=== PATIENT | male | born 1960 | race Caucasian/White ===

== ENCOUNTER 2019-04-26 06:00 | Outpatient (RCR) | payer OTHER, SELFPAY | END 2019-05-26 00:01 | LOC: TPT 06:00 | PROVIDERS: Family Provider Nurse Practitioner Family; Visit Provider Orthopaedic Surgery | DX: M25.611 Stiffness of right shoulder, not elsewhere classified (principal); M25.511 Pain in right shoulder | CPT/HCPCS: 97110 ×10; 97140 ×9; 97164; 97530 ×2; G0283 ==

== ENCOUNTER 2019-05-27 09:14 | Outpatient (RCR) | payer BC, SELFPAY | END 2019-06-26 23:59 | disposition home or self-care (01) | LOC: TPT 09:14 | PROVIDERS: Family Provider Nurse Practitioner Family; PCP Nurse Practitioner Family; Visit Provider Nurse Practitioner Family | DX: Z47.89 Encounter for other orthopedic aftercare (principal) | CPT/HCPCS: 97110; 97140 ==

== ENCOUNTER 2019-05-29 11:47 | Outpatient (CLI) | payer BC, SELFPAY ==
--- NOTE | 2019-05-29 12:19 | ECG_ITS ---
NAME OF STUDY: TREADMILL STRESS TEST INDICATION: Chest Pain Baseline blood pressure of 143/92 mmHg and heart rate of 76 bpm. EKG showed sinus tachycardia, normal axis with normal ST-Ts. The patient exercised for 6 minutes 17 seconds on a standard Justen protocol. Patient attained a maximum heart rate of 141 beats per minute(87 % of the maximum predicted heart rate) with a blood pressure at the peak exercise of [210/103 mm Hg and oxygen saturation of 93%. The EKG at the peak exercise revealed sinus tachycardia with 2 to [address] depression and T wave inversion in infero-lateral leads. Patient did not have any chest pain or any significant arrhythmia with the exercise During the recovery phase, there were no new changes. ST depression and T wave inversion normalized 1 minute 12 seconds into recovery. Blood pressure at the end of the recovery phase was 171/91 mm Hg with a heart rate of 101 beats per minute and oxygen saturation 93%. CONCLUSION: 1. Positive EKG response to treadmill exercise. There was 2 to [address] depression and T wave inversion in infero-lateral leads at peak exercise. 2. No exercise-induced chest pain or cardiac arrhythmia 3. Fair exercise tolerance, attained a maximum of 10.2 METs. Maximum VO2 of 35.7 mL/kg/min. 4. Baseline hypertension with hypertensive response to exercise. Electronically Signed On 05-31-2019 13:41:58 PULP MILL SUPERVISOR by Ashanti Carrizales M.D. [email or web address]
[2019-05-29 12:29] VITALS: BMI 32.8
[2019-05-29 12:51] VITALS: BP 171/91; PULSE 71
== END 2019-05-29 11:48 | disposition home or self-care (01) ==
LOC: CDL 11:48
PROVIDERS: Family Provider Nurse Practitioner Family; PCP Nurse Practitioner Family; Visit Provider Nurse Practitioner Family
DX: R07.9 Chest pain, unspecified (principal)
CPT/HCPCS: 93017

== ENCOUNTER 2019-07-21 05:48 | Day surgery (SDC) | payer BC, SELFPAY ==
[2019-07-14 08:28] LABS: Basophils # 0.1 10^3/uL (0.0-0.1); Eosinophils # 0.2 10^3/uL (0.0-0.8); Eosinophils % 3.4 %; Hematocrit 44.6 % (42.0-52.0); Hemoglobin 14.6 g/dL (11.7-16.6); Lymphocytes # 1.6 10^3/uL (0.8-4.8); Lymphocytes % 26.3 %; Mean Corpuscular HGB Conc 32.7 g/dL (30.0-36.0); Mean Corpuscular Hemoglobin 29.4 pg (28.0-34.0); Mean Corpuscular Volume 89.9 fL (80-94); Mean Platelet Volume 9.4 fL (7.4-10.4); Monocytes # 0.5 10^3/uL (0.2-0.9); Neutrophils # 3.8 10^3/uL (1.8-7.7); Neutrophils % 61.1 %; Nucleated Red Blood Cells % 0 %; Platelet Count 259 10^3/cmm (130-400); Red Blood Count 4.96 10^6/uL (4.1-5.3); Red Cell Distribution Width 12.6 % (12.1-15.1); White Blood Count 6.1 10^3/uL (4.0-10.0)
[2019-07-14 08:42] LABS: INR 0.93 (0.8-1.2)
[2019-07-14 08:46] LABS: Anion Gap 15.1 (5-19); Blood Urea Nitrogen 11 mg/dL (6-20); Calcium 9.9 mg/dL (8.5-10.5); Carbon Dioxide 27 mmol/L (22-29); Chloride 103 mmol/L (98-107); Glomerular Filtration Rate 137.9 mL/min (90-130); Glucose 118 mg/dL (65-115); Osmolality Calculated 289 mOsm/kg (285-295); Potassium 4.1 mmol/L (3.5-5.1); Sodium 141 mmol/L (136-145)
[2019-07-20 11:14] VITALS: BMI 32.0
[2019-07-21] VITALS (15 sets, daily range): BP systolic 117–218; BP diastolic 61–116; PULSE 60–82; RESP 12–18; TEMP 36.6–36.8; O2SAT 95–99
[2019-07-21] MEDS: diphenhydrAMINE 50 mg Capsule PO (06:39)
--- NOTE | 2019-07-21 07:00 | XACV_ITS ---
Ht: 183 cm Wt: 107 kg BSA: 2.36 m2 Gender: Male : 1960 Any Known Allergies: No known allergies Exam Priority: Routine Procedure(s): Procedure Description: Diagnostic procedure Procedure Description: Left Heart Catheterization Procedure Description: Left ventriculography Procedure Description: Coronary Angiography Diagnostic Cath Status: Elective Diagnostic Findings Patient with somewhat atypical pain but a positive treadmill stress test. Coronary angiography recommended. Coronary angiography reveals right coronary artery dominance. The left main coronary artery is normal. Circumflex is a relatively small vessel and contains a 50% stenosis proximally but otherwise mild diffuse luminal irregularities. There is a small ramus intermedius artery which contains a 50% stenosis proximally but otherwise no significant stenoses. The LAD is a moderate size vessel and gives off 2 diagonal branches. There is mild diffuse luminal irregularities of the LAD and diagonals. The proximal vessels are heavily calcified. The right coronary artery is a large dominant vessel and ends distally as several small posterior left ventricular branches and a posterior descending artery. There is mild diffuse luminal irregularity but no significant stenoses. Conclusions Mild nonobstructive coronary artery disease. Normal left ventricular function. Interventional RX Recommendation: medical therapy and/or counseling Diagnostic RX Recommendation: medical therapy and/or counseling Anticoagulation: Heparin Ventriculography Ejection Fraction: 65.0 % Pressures Phase:Rest AO : 108 mmHg / 78 mmHg ( 92 mmHg ) @ 1:29:00 AM 132 mmHg / 67 mmHg ( 92 mmHg ) @ 1:43:00 AM 132 mmHg / 68 mmHg ( 93 mmHg ) @ 1:43:00 AM 122 mmHg / 67 mmHg ( 88 mmHg ) @ 1:43:00 AM LV : 149 mmHg / -10 mmHg / @ 1:42:00 AM 162 mmHg / -18 mmHg / @ 1:43:00 AM 156 mmHg / -12 mmHg / @ 1:43:00 AM Valves Phase:DefaultPhase AV : 24.0 mmHg @ 7:52:05 AM 24.0 mmHg @ 7:52:05 AM AV Mean Gradient: 17.0 mmHg @ 7:52:05 AM Clinical Evaluation EBL: 5mL-10mL Procedural Details Procedure Consent Obtained. Pre-Procedure Time Out. Identified patient by full name and date of as verbalized by the patient/guarantor. Does the consent match the physician's order: Yes. Accurate & Complete Informed Consent: Yes. Inpatient/Outpatient History & Physical on Chart: Yes. If H&P is completed, is and addenduem needed: No; If yes, is the addendum complete: N/A. Visualize and Verify Site with Patient/Guarantor: N/A. Relevant Radiology Images available: N/A. Pre-op teaching completed and patient verbalized understanding. The risks, benefits, and alternatives of sedation and/or procedure were discussed by physician. The patient agrees to continue. Procedure started. [facility] Clinical Fraility Score: 3: Managing Well. 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 Chest Pain Symptom Assessment: Non-anginal Chest Pain. Cardiovascular Instability: No. Correct patient, site and procedure confirmed by cath team. PERRLA. 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 Lungs clear x 5 lobes. IV Site on Arrival: 20 gauge in the left wrist. IV Fluids: 0.9% NaCl at KVO. 0 mL infused prior to general labor forklift operator. Pre Procedural Pulses: bilateral dorsalis pedis was 2+. Pre Procedural Pulses: bilateral posterior tibial was 2+. Pre Procedural Pulses: bilateral radial was 2+. Oxygen started at 2liters/min via nasal canula. bilateral groins was prepped with chloroprep then draped in the usual sterile fashion. right radial was prepped with chloroprep then draped in the usual sterile fashion. Physician notified. Baseline sample Acquired. HR: 94 BPM. Equipment: 6F - Radial. Cardiac Cath Pack. ACIST Manifold Kit Model BT 2000. Heparinized Saline (2 units/mL), 1000 mL bag. Physician arrived. Physician scrubbed in. Immediate Pre-Procedure Time Out. Correct Patient: Yes; Correct Procedure: Yes; Correct Site: Yes; Correct Patient Position: Yes; Correct Supplies: Yes; Dried Flammable Prep: Yes; Blood Products Available: N/A;. Lidocaine 1% infiltrated to the right radial. Arterial access obtained. A TR 6FR Radial TIG 4.0 110cm was advanced over the wire and used for Left coronary angiography. Multiple views taken of left coronary artery. Catheter redirected to the RCA. Multiple views taken of right coronary artery. Catheter removed over the exchange wire. A CRD 6F 145 degree Pigtail 110cm Diagnostic Catheter was advanced over the wire and used for Ventriculography. Patient's family updated. Catheter removed over the exchange wire. A 6 slovak TIG catheter in over wire. Catheter removed over the exchange wire. A CRD 6F 145 degree Pigtail 110cm Diagnostic Catheter was advanced over the wire and used for Ventriculography. EDP Sample taken: LV 149/-10,15; HR: 79 BPM; SpO2: 94%. LV gram performed in FORRESTER @ 10 mL/second for a total of 30 mL. EDP Sample taken: LV 162/-19,11; HR: 85 BPM; SpO2: 94%. Pullback taken: LV 156/-13,11; AO 132/67(92); Mean: 17mmHg, Peak to Peak: 24mmHg, SEP: 21sec/min; HR: 86 BPM; SpO2: 93%. Catheter removed over the exchange wire. Physician scrubbed out. A TR Band was successful obtaining hemostatsis at the Right Radial artery insertion site. TR band placed. Hemostasis obtained. Post Procedure: Pulses reassessed and unchanged. PERRLA. 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 No VTE prophylaxis required. Medication's Wasted: Lidocaine 1% = 18 mL. Medication's Wasted: Nitro = 49.8 mg. Medication's Wasted: Heparin = 1000 units. Total IV fluids: 58.8 mL. Medication's Wasted: Other = versed mg. Medication's Wasted: Other = fentanyl 50 mcg. Post-op diagnosis: chest pain. Complications: none. Estimated blood loss: 5mL-10mL. Procedure completed. Patient transferred by wheelchair to CPRU. Vital chart was stopped. Site: Right Radial artery Sheath Size: 6 Fr Hemostasis Method: TR Band Hemostasis Success: Successful Procedure Medications Start: 7:14 AM Stop: 7:14 AM Medication: Versed Amount: 1 mg Route: I.V. Start: 7:14 AM Stop: 7:14 AM Medication: Fentanyl Amount: 50 mcg Route: I.V. Start: 7:21 AM Stop: 7:21 AM Medication: Versed Amount: 1 mg Route: I.V. Start: 7:21 AM Stop: 7:21 AM Medication: Fentanyl Amount: 50 mcg Route: I.V. Start: 7:25 AM Stop: 7:25 AM Medication: Verapamil Amount: 5 mg Route: I.A. Start: 7:27 AM Stop: 7:27 AM Medication: Nitrogylcerin Amount: 200 mcg Route: I.A. Start: 7:29 AM Stop: 7:29 AM Medication: Heparin Amount: 5000 units Route: I.V. Start: 7:32 AM Stop: 7:32 AM Medication: Versed Amount: 1 mg Route: I.V. Start: 7:32 AM Stop: 7:32 AM Medication: Fentanyl Amount: 50 mcg Route: I.V. I, the attending physician, have reviewed and verified all procedure medications. Yes, all medications given per verbal order History/Risk Factors Hypertension: Yes Dyslipidemia: Yes Peripheral Arterial Disease (PAD): No Myocardial Infarction (SD): No Obesity: No Renal Disease: No Tobacco Use: Never Prior Interventions PCI: No CABG: No Valve Surgery: No Report Signatures Finalized by:Dr. Bertrand Hutchinson MD on 07/21/2019 8:03:28 AM
--- NOTE | 2019-07-21 08:00 | SUR.PHASEII ---
POST CATH NOTE Patient returned to CPRU 3 for recovery. Status post- cardiac cath via the right radial approach. No hematoma formation noted at this time. Verbal post cath instructions given to the patient- verbalized understanding. Will continue to monitor.
[2019-07-21] MEDS: sodium chloride 0.9% 1,000 ML 125 ML IV (08:34)
--- NOTE | 2019-07-21 10:00 | SUR.PHASEII ---
TR BAND TR band removed using protocol. No hematoma formation noted at this time.
--- NOTE | 2019-07-21 10:29 | SUR.PHASEII ---
DISCUSSION Dr Hutchinson in to discuss findings of the test with the patient. No new orders at this time.
== END 2019-07-21 11:44 | disposition home or self-care (01) ==
PROVIDERS: Visit Provider Internal Medicine Cardiovascular Disease
DX: I25.10 Atherosclerotic heart disease of native coronary artery without angina pectoris (principal); R94.39 Abnormal result of other cardiovascular function study; R07.89 Other chest pain; I10 Essential (primary) hypertension; E78.5 Hyperlipidemia, unspecified
CPT/HCPCS: 80048; 85025; 85610; 93452; C1769; C1887; C1894; J1644; J2001; J2250; J3010; J3490; J7030; Q0163; Q9967

== ENCOUNTER → 2019-07-28 10:55 | Outpatient (BNVA) | payer BC, SELFPAY | PROVIDERS: Visit Provider Nurse Practitioner Family | DX: I25.10 Atherosclerotic heart disease of native coronary artery without angina pectoris (principal) | CPT/HCPCS: 80048 ==

== ENCOUNTER → 2019-11-12 12:10 | Outpatient (BNVA) | payer BC, SELFPAY | PROVIDERS: Visit Provider Nurse Practitioner Family | DX: E78.5 Hyperlipidemia, unspecified (principal); I10 Essential (primary) hypertension; I25.10 Atherosclerotic heart disease of native coronary artery without angina pectoris | CPT/HCPCS: 80053; 80061; 85025 ==

== ENCOUNTER → 2020-02-11 17:01 | Outpatient (BNVA) | payer OTHER, SELFPAY | PROVIDERS: Visit Provider Internal Medicine | DX: B34.9 Viral infection, unspecified (principal); Z20.828 Contact with and (suspected) exposure to other viral communicable diseases | CPT/HCPCS: 87635 ==

== ENCOUNTER → 2020-06-20 09:02 | Outpatient (BNVA) | payer OTHER, SELFPAY | PROVIDERS: Visit Provider Nurse Practitioner Family | DX: R53.82 Chronic fatigue, unspecified (principal); I10 Essential (primary) hypertension; I25.10 Atherosclerotic heart disease of native coronary artery without angina pectoris | CPT/HCPCS: 80053; 80061; 82306; 82607; 84403; 84443; 85025 ==

== ENCOUNTER 2020-12-23 09:25 | Outpatient (CLI) | payer OTHER, SELFPAY ==
--- NOTE | 2020-12-23 09:38 | XR_ITS ---
WS: [id number] XR lumbar spine 2-3V* [id number] REASON FOR EXAM: JOINT PAIN FINDINGS: There is flattening of the L1 vertebral body and mild concave compression deformity of the remaining vertebral bodies. There is moderate narrowing of the L1-L2 and L5-S1 disc space. This is associated with large anterior osteophytes. The remaining disc spaces in the lumbar spine demonstrate mild narrowing, smaller anter ior osteophytes. Severe degenerative facet joint changes L3-S1. No spondylolisthesis or spondylolysis identified. XR/XR lumbar spine 2-3V* [id number] IMPRESSION: Multiple compression deformities in the lumbar spine of uncertain age, likely c hronic. Degenerative lumbar disc disease as above.
--- NOTE | 2020-12-23 09:39 | XR_ITS ---
WS: [id number] XR shoulder RT min 2V* [id number] REASON FOR EXAM: JOINT PAIN FINDINGS: Right shoulder is unchanged compared to previous examination of 11/06/2018. Narrowing of the right acromioclavicular joint with marginal spurring directed superiorly. There is n arrowing of the glenohumeral joint. There is spurring of the glenoid rim. There is degenerative scler otic and cystic change in the rotator cuff insertion point on the humerus. No focal bone lesion. No soft tissue abnormality. XR/XR shoulder RT min 2V* [id number] IMPRESSION: Stable findings of osteoarthritis and rotator cuff tendinosis.
== END 2020-12-23 09:26 | disposition home or self-care (01) ==
PROVIDERS: PCP Nurse Practitioner Family; Visit Provider Dermatology
DX: Z02.71 Encounter for disability determination (principal); M51.36 Other intervertebral disc degeneration, lumbar region
CPT/HCPCS: 72100; 73030

== ENCOUNTER → 2021-01-13 09:21 | Outpatient (BNVA) | payer OTHER, SELFPAY | PROVIDERS: PCP Nurse Practitioner Family; Visit Provider Nurse Practitioner Family | DX: E78.5 Hyperlipidemia, unspecified (principal); M25.512 Pain in left shoulder; G89.29 Other chronic pain; E55.9 Vitamin D deficiency, unspecified; I10 Essential (primary) hypertension; M65.322 Trigger finger, left index finger | CPT/HCPCS: 73030 ==

== ENCOUNTER → 2021-01-16 15:46 | Outpatient (BNVA) | payer OTHER, SELFPAY | PROVIDERS: PCP Nurse Practitioner Family; Referring Provider Nurse Practitioner Family; Visit Provider Specialist | DX: M79.642 Pain in left hand (principal) | CPT/HCPCS: 73130 ==

== ENCOUNTER → 2021-01-23 09:16 | Outpatient (BNVA) | payer OTHER, SELFPAY | PROVIDERS: PCP Nurse Practitioner Family; Visit Provider Specialist | DX: Z01.812 Encounter for preprocedural laboratory examination (principal); Z20.822 Contact with and (suspected) exposure to COVID-19; M65.322 Trigger finger, left index finger | CPT/HCPCS: 87635 ==

== ENCOUNTER 2021-01-27 07:48 | Day surgery (SDC) | payer OTHER, SELFPAY ==
[2021-01-26 15:45] VITALS: BMI 32.5
--- NOTE | 2021-01-27 08:16 | P.HPUD_ITS ---
Surgery/Procedure H&P Update DATE OF PROCEDURE: January 27, 2021 DATE H&P PERFORMED: 01/16/21 H&P UPDATE INFORMATION: I have reviewed H&P completed within last 30 days, I have examined patient prior to procedure, No changes to prior documentation and H&P is in [facility] EMR on date indicated PLANNED PROCEDURE: Operation Date: 01/27/21 09:10 Proposed Procedures p Trigger Finger Release left index(Left) - Radha Velasquez MD Related Problem List Diagnoses (1) Trigger finger, left index finger:
[2021-01-27] MEDS: sodium chloride 0.9% 1,000 ML 30 ML IV (08:30)
[2021-01-27] MEDS: acetaminophen 1,000 MG/100 ML PIGGYBACK 400 MG IV (08:55)
--- NOTE | 2021-01-27 08:55 | ANES.PREANE2 ---
Pre-Anesthetic Assessment Pre-Anesthetic Assessment: Height/Weight: Height 1.83 m Weight 108.862 kg Preop Diagnosis: Left index trigger finger Proposed Procedure: Operation Date: 01/27/21 09:10 Proposed Procedures p Trigger Finger Release left index(Left) - Radha Velasquez MD Familial anesthetic complications: None Was Beta Dominic taken within 24 hours: N/A Was Clonidine taken within 24 hours: N/A Last intake: Intake Last Liquid Date 01/26/21 Last Liquid Time 20:00 Last Solid Date 01/26/21 Last Solid Time 20:00 Social: Social History: Tobacco and No alcohol Exam: Pre-Anes Outpt Exam: alert, oriented x 3, clear to auscultation bilaterally and regular rate & rhythm Airway: Cervical ROM: WNL MP: 3 Dentition: Chipped CV/HEM: CV/HEM: CAD and HTN Comments: mod CAD on cath from 2019 - medical management Metabolic: Metabolic: Hyperlipidemia Anesthetic Plan: ASA status: 3 Anesthesia: MAC and Regional (specify below) (misael block) Risk of > 500 ml blood loss (7ml/kg in children): No PFSH Anesthesia PFSH: Medical History (Updated 01/18/21 @ 14:31 by Radha Velasquez MD) Anxiety Chest pain Coronary artery disease 07/21/2019: Non obstructive disease: 50% proximal stenosis of the circumflex, 50% proximal stenosis of the ramus intermedius. LVEF normal. HLD (hyperlipidemia) HTN (hypertension) Family History Father COPD (chronic obstructive pulmonary disease) Family/Other Cancer Brother Family history of premature coronary artery disease Hypertension Stroke Denies family history of Diabetes CAD (coronary artery disease) Clotting disorder Dementia Hyperlipidemia Psychiatric illness Chronic kidney disease (CKD) Suicide Anesthesia complication Bleeding disorder Lung disease Social History Smoking and tobacco status: never smoked Second hand smoke exposure: No Alcohol intake: current Alcohol intake frequency: holidays/special occasions only Lives independently: Yes Household members: spouse Marital status: Current occupational status: employed Current occupation: [employer] History of recent travel: No Current gender identity: Male Data Anesthesia Cardiac Studies: No Data to Display
[2021-01-27] MEDS: CELEcoxib 200 mg Capsule 400 MG PO (09:03)
[2021-01-27 10:08] VITALS: BP 106/77; PULSE 76; RESP 12; TEMP 36.5; O2SAT 97
[2021-01-27 10:10] VITALS: BP 110/69; PULSE 69; RESP 16; O2SAT 96
[2021-01-27 10:15] VITALS: BP 112/76; PULSE 73; RESP 16; O2SAT 93
--- NOTE | 2021-01-27 10:15 | PM.OP ---
Operative Report Date of procedure: January 27, 2021 Pre-op Diagnosis: Left index trigger finger Post-op diagnosis: same Post-op Findings: Very tight A1 pa Procedure Done: Release left index finger trigger finger Specimens removed/disposition: None Pathology: none sent Surgeon: Radha Velasquez Tipple Supervisor: None Anesthesia: MAC (With [place] block, ASA 3) Estimated blood loss (mL): 1 Tourniquet time (min): 34 Tourniquet time: At 250 mmHg IV fluids (mL): 600 Urine output (mL): 0 Urine output: No Russo Complications: None Findings: Significant thickening of the A1 pa with triggering Condition: stable Disposition: PACU (Then discharged to same-day surgery and subsequent to home) Brief History: This 60-year-old gentleman presented with complaints of index finger triggering. This caused him issues in his activities of daily living. After discussion, the patient wished to proceed with trigger finger release. Therefore, questions were answered, and consents were signed. The patient was then scheduled for surgery. Procedure: Patient was brought to the operating theater. He was placed on the operating room table. A [place] block was administered without difficulty. Patient tolerated it well. Ancef 2 g was administered prophylactically preoperatively. A tourniquet was placed high on the arm and was elevated for the Nicole block. This followed exsanguination of the arm. Tourniquet time was 34 minutes. Surgical pause was performed prior to commencement of the surgical procedure. At the time of the surgical pause we identified the site and side of surgery. We also identified the patient's identity and appropriate administration of IV antibiotics. Following the surgical pause, an incision was made along the distal palmar crease beneath the index finger. Dissection continued through the skin to the subcutaneous tissues using a scalpel. Blunt dissection was then utilized to spread soft tissues and allow access to the A1 pa and to avoid injury to the digital nerves. The A1 pa was identified. It was then incised longitudinally and sharply using a knife. This was accomplished without difficulty and atraumatically. Once the A1 pa was released, tendons were brought up out of the wound and evaluated. There were no gross masses on the tendons. Tendons were returned to normal position. We then irrigated the wound and subsequently closed it with 3-0 nylon with an interrupted mattress type suture. Following closure of the wound, the wound was injected with local anesthetic into the subcutaneous tissues. Sterile dressing was then placed consisting of Dermabond, OpSite, fluffed fluffs, sterile soft roll, and an Francisco wrap. The patient was returned to recovery in satisfactory condition. [] will be discharged home to follow-up with me in the office. There were no complications and no specimens. Associated Problem List Diagnoses (1) Trigger finger, left index finger:
[2021-01-27 10:20] VITALS: BP 118/70; PULSE 65; RESP 17; TEMP 36.6; O2SAT 95
[2021-01-27 10:25] VITALS: BP 120/82; PULSE 72; RESP 18; TEMP 36.4; O2SAT 97
[2021-01-27 10:48] VITALS: BP 121/76; PULSE 62; RESP 18; O2SAT 98
--- NOTE | 2021-01-27 15:58 | ANE.PACU2 ---
Inpatient post-anesthesia follow up: Airway intact: Yes Vital signs: Temperature 97.6 F Pulse Rate 62 Respiratory Rate 18 Blood Pressure 121/76 Pulse Oximetry 98 Oxygen Delivery Me thod Room Air Oxygen Flow Rate Fraction of Inspir ed Oxygen Hydration adequate: Yes Nausea and vomiting: No Pain level: 2 Mental status: Baseline
== END 2021-01-27 11:12 | disposition home or self-care (01) ==
PROVIDERS: PCP Nurse Practitioner Family; Visit Provider Specialist
PROC: (CPT 26055; principal; 2021-01-27 09:00)
DX: M65.322 Trigger finger, left index finger (principal); I25.10 Atherosclerotic heart disease of native coronary artery without angina pectoris; I10 Essential (primary) hypertension; E78.5 Hyperlipidemia, unspecified; F41.9 Anxiety disorder, unspecified; Z79.82 Long term (current) use of aspirin
CPT/HCPCS: 26055; J0690; J2250; J2704; J3010; J3490; J7030

== ENCOUNTER 2021-02-01 16:57 | Outpatient (CLI) | payer OTHER, SELFPAY ==
--- NOTE | 2021-02-01 17:30 | MR_ITS ---
WS: [id number] MRI LEFT SHOULDER NONCONTRAST TECHNIQUE: Sagittal T2, coronal T1, T2 and proton density imaging. Axial gradient PDE imaging. CLINICAL INFORMATION: M25.512 - Pain in left shoulder COMPARISON: None. FINDINGS: Advanced hypertrophic changes AC joint with synovial thickening. Moderate downsloping acromion. Moder ate to advanced narrowing of the subacromial space. Tiny amount of subacromial and subdeltoid fluid. Mild edema at the AC joint. Slight subacromial spurring. High-grade complete tear of the supraspinatus with retraction to the level of glenohumeral joint. No significant residual distal tendon. Chronic thinning of the distal infraspinatus which appears intact . Tiny insertional tear at the infraspinatus insertion distally. Normal teres minor. Chronic thinning of the subscapularis which appears intact. Normal biceps tendon in the bicipital groove. Tiny amount of subcoracoid fluid. Glenoid labrum appears grossly normal. Nor mal bone marrow signal in the glenoid. Intra-articular biceps tendon is intact. Normal biceps labral anchor. MR/MR shoulder LT wo con* [id number] IMPRESSION: 1. Complete high-grade tear involving the supraspinatus with retraction to the level of glenohumeral joint. 2. Marked chronic thinning of the distal infraspinatus tendon with a tiny inse rtional tear 3. Normal teres minor. Mild chronic thinning of the subscapularis which appear s intact. 4. Normal biceps tendon in the bicipital groove. Normal intra-articular biceps tendon. 5. Advanced degenerative arthritis at the AC joint with synovial thickening an d edema. Moderate downsloping of the acromion with moderate to severe narrowing of the subacromial space. Slight subacromial spurring.
== END 2021-02-01 16:58 | disposition home or self-care (01) ==
LOC: RADSHAW 17:02
PROVIDERS: PCP Nurse Practitioner Family; Visit Provider Nurse Practitioner Family
DX: G89.29 Other chronic pain (principal); M75.122 Complete rotator cuff tear or rupture of left shoulder, not specified as traumatic; M19.012 Primary osteoarthritis, left shoulder
CPT/HCPCS: 73221; 80053; 80061; 82306; 82607; 85025

== ENCOUNTER → 2021-02-21 09:07 | Outpatient (BNVA) | payer OTHER, SELFPAY | PROVIDERS: PCP Nurse Practitioner Family; Referring Provider Nurse Practitioner Family; Visit Provider Specialist | DX: M25.512 Pain in left shoulder (principal); G89.29 Other chronic pain; M77.8 Other enthesopathies, not elsewhere classified | CPT/HCPCS: 73030 ==

== ENCOUNTER 2021-07-19 16:12 | Inpatient (IN) | payer OTHER, SELFPAY ==
[2021-07-19] VITALS (8 sets, daily range): BP systolic 122–177; BP diastolic 80–97; PULSE 75–112; RESP 16–20; TEMP 36.4–37.1; O2SAT 94–98; BMI 31.1; BMI 34.0
--- NOTE | 2021-07-19 16:17 | XRR_ITS ---
PROCEDURE INFORMATION: Exam: XR Chest Exam date and time: 07/19/2021 4:17 PM Age: 61 years old Clinical indication: Injury or trauma; Fall; Blunt trauma (contusions or hematomas) TECHNIQUE: Imaging protocol: XR of the chest. Views: 1 view. COMPARISON: CR XR shoulder LT min 2V* [id number] 02/21/2021 9:15 AM FINDINGS: Lungs: Mild atelectasis or scar in the lingula. No consolidation. Pleural spaces: Unremarkable. No pleural effusion. No pneumothorax. Heart/Mediastinum: Unremarkable. No cardiomegaly. Bones/joints: Unremarkable. XR/XR chest 1V portable [id number] IMPRESSION: No acute findings.
--- NOTE | 2021-07-19 16:17 | XRR_ITS ---
PROCEDURE INFORMATION: Exam: XR Right Hip Exam date and time: 07/19/2021 4:17 PM Age: 61 years old Clinical indication: Injury or trauma; Fall; Blunt trauma (contusions or hematomas); Right; Hip; Additional info: Trauma; One view pelvis too please TECHNIQUE: Imaging protocol: XR Right hip. Views: 1 view hip with pelvis when performed. COMPARISON: CR Hip 2-3v RIGHT wwo Pelv* [id number] 11/06/2018 12:31 PM FINDINGS: Bones/joints: Severely comminuted displaced fracture involving the intertrochanteric and subtrochanteric right femur. The right hip joint and pubic rami appear intact. Soft tissues: Unremarkable. XR/XR hip RT 2-3V wo/w pel* [id number] IMPRESSION: Comminuted displaced right intertrochanteric and subtrochanteric femur fracture.
--- NOTE | 2021-07-19 16:18 | ECG_ITS ---
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 Measurements Intervals [place] Rate: 84 P: 55 MI: 140 QRS: 75 QRSD: 85 T: -14 QT: 321 QTc: 379 Interpretive Statements SINUS RHYTHM NONSPECIFIC T-WAVE ABNORMALITY No previous ECG available for comparison Electronically Signed On 07-19-2021 20:06:52 CLOTH TESTER QUALITY by Liss Luis M.D. [id number]
--- NOTE | 2021-07-19 16:25 | W.ED.EXTPRO ---
HPI - Extremity Problem General: Chief complaint: Fall Stated complaint: FALL/ R HIP PAIN Time Seen by Provider: 07/19/21 16:17 Source: patient and EMS Mode of arrival: EMS Limitations: no limitations History of Present Illness: 61-year-old male states that he was out and slipped on the ice today he fell onto his right side and has right hip and states he was unable to ambulate and had severe pain in nature he rates his pain a 8 out of 10 has obvious deformity denies any other injuries denies hitting his head. Associated symptoms: Deny chest pain, fever(s) or rash Review of Systems Const: Denies: fever(s), chills, body aches or change in appetite Eyes: Denies: blurry vision or eye discomfort ENMT: Denies: throat pain or dental pain Card: Denies: chest pain Resp: Denies: dyspnea GI: Denies: abdominal pain, nausea, vomiting or diarrhea : Denies: dysuria Musc: Reports: extremity pain; Denies: neck pain or back pain Skin/Breast: Denies: rash Neuro: Denies: headache(s) Psych: Denies: depression Theo/Lymph: Denies: easy bruising All/Imm: Denies: urticaria PFSH ED PFSH: Medical History (Updated 07/19/21 @ 16:54 by Lakisha Abdi MD) Anxiety Chest pain Coronary artery disease 07/21/2019: Non obstructive disease: 50% proximal stenosis of the circumflex, 50% proximal stenosis of the ramus intermedius. LVEF normal. HLD (hyperlipidemia) HTN (hypertension) Family History Father COPD (chronic obstructive pulmonary disease) Family/Other Cancer Brother Family history of premature coronary artery disease Hypertension Stroke Denies family history of Diabetes CAD (coronary artery disease) Clotting disorder Dementia Hyperlipidemia Psychiatric illness Chronic kidney disease (CKD) Suicide Anesthesia complication Bleeding disorder Lung disease Social History Smoking and tobacco status: current every day smoker Second hand smoke exposure: No Alcohol intake: current Alcohol intake frequency: holidays/special occasions only Lives independently: Yes Household members: spouse Marital status: Current occupational status: employed Current occupation: [employer] History of recent travel: No Current gender identity: Male Physical Exam Const: COMMON NORMALS: no acute distress, patient oriented x3 and healthy appearing HENMT: COMMON NORMALS: normocephalic and atraumatic HEAD & SCALP: normocephalic and atraumatic Eye: COMMON NORMALS: Equal, round and reactive pupils present and EOMs intact bilaterally PUPIL: Yes Equal, round and reactive pupils present Neck/C-Spine: COMMON NORMALS: full ROM and supple Chest: COMMONS NORMALS: normal inspection of the chest and normal palpation of entire chest wall Resp: COMMON NORMALS: normal respiratory effort, No retractions, No use of accessory muscles and clear to auscultation bilaterally AUSCULTATION: clear to auscultation bilaterally Cardio: COMMON NORMALS: regular rate, regular rhythm and No murmurs present (Cardio) RATE: regular rate RHYTHM: regular rhythm GI: COMMON NORMALS: Normal to inspection, nondistended, normoactive bowel sounds present, Soft to palpation, non-tender and no masses PALPATION: Yes Soft to palpation Extremity: COMMON NORMALS: full ROM NARRATIVE EXTREMITY EXAM: Tenderness over right hip right leg is shortened and externally rotated distal pulses intact Neuro: COMMON NORMALS: patient oriented x3, moves all extremities and no focal motor deficits Psych: COMMON NORMALS: mental status grossly normal, Normal thought process present and cooperative THOUGHT PROCESS: Normal thought process present Skin: COMMON NORMALS: no rashes or lesions noted and no wounds GENERAL SKIN EXAM: no rashes or lesions noted Course Vital Signs: Vital signs: Vital Signs Pulse Rate 78 07/19/21 16:42 Respiratory Rate 16 07/19/21 16:42 Blood Pressure 177/97 07/19/21 16:42 Pulse Oximetry 98 07/19/21 16:42 MDM - Extremity (Nontraumatic) Medical Decision Making Patient presents with a right hip fracture from a fall distal pulses are intact spoke to hospitalist who is admitting spoke to orthopedics who is consulted. 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
[2021-07-19] MEDS: HYDROmorphone 1 mg/mL INJ 1 mL IVP (17:00)
[2021-07-19] MEDS: ondansetron 2 mg/ML SDV 2 mL 4 MG IVP (17:01)
--- NOTE | 2021-07-19 17:02 | PM.HP ---
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 Patient is stating that today he was coming inside his home from his backyard when he lost his foot on the step and fell on the concrete edge. EMS was called. In the ER he was diagnosed with right hip fracture. Dr. Wagner has been consulted. He will be kept n.p.o. after midnight, no cardiac work-up needed for the surgery. Patient is stating that he has been vaccinated with COVID-19 vaccine. No recent fever, shortness of breath, chest pain. Hospitalist has been asked to admit the patient Patient is aware of Dr. Wagner who did surgery for his trigger finger Review of Systems Const: Denies: chills or body aches Eyes: Denies: change in vision ENMT: Denies: throat pain Card: Denies: chest pain Resp: Denies: dyspnea GI: Denies: abdominal pain : Denies: flank pain Musc: Reports: extremity pain and extremity swelling Skin/Breast: Denies: rash Neuro: Denies: headache(s) Psych: Denies: anxiety Endo: Denies: polyuria Theo/Lymph: Denies: easy bruising All/Imm: Denies: urticaria Medications/Allergies Home Medications Medication Instructions Recorded Confirmed Last Taken Type aspirin 81 mg tablet,delayed 81 mg PO DAILY 07/13/19 03/02/21 3 Days Ago History release (Aspir-) ~01/24/21 lisinopril 2.5 mg tablet 2.5 mg PO DAILY #90 tab 01/13/21 03/02/21 01/26/21 Rx rosuvastatin 20 mg tablet 20 mg PO DAILY #90 tab 01/13/21 03/02/21 01/26/21 Rx sildenafil 50 mg tablet (Viagra) 50 mg PO DAILY PRN #10 tab 01/13/21 03/02/21 2 Months Ago Rx ~11/26/20 Allergies Allergy/AdvReac Type Severity Reaction Status Date / Time No Known Allergies Allergy Verified 03/02/21 15:04 PFSH Acute PFSH: Medical History Anxiety Chest pain Coronary artery disease 07/21/2019: Non obstructive disease: 50% proximal stenosis of the circumflex, 50% proximal stenosis of the ramus intermedius. LVEF normal. HLD (hyperlipidemia) HTN (hypertension) Family History Father COPD (chronic obstructive pulmonary disease) Family/Other Cancer Brother Family history of premature coronary artery disease Hypertension Stroke Denies family history of Diabetes CAD (coronary artery disease) Clotting disorder Dementia Hyperlipidemia Psychiatric illness Chronic kidney disease (CKD) Suicide Anesthesia complication Bleeding disorder Lung disease Social History Smoking and tobacco status: current every day smoker Second hand smoke exposure: No Alcohol intake: current Alcohol intake frequency: holidays/special occasions only Lives independently: Yes Household members: spouse Marital status: Current occupational status: employed Current occupation: [employer] History of recent travel: No Current gender identity: Male Vitals/I&O/Wt Last Vital Signs Pulse 78 07/19/21 16:42 Resp 16 07/19/21 17:00 BP 177/97 07/19/21 16:42 Pulse Ox 98 07/19/21 16:42 Weight last 48 hrs Weight 104.326 kg Physical Exam Narrative: Very pleasant elderly male Obese patient Recently received Dilaudid Right leg is rotated outwards and sharp No vascular compromise Awake and alert Saturating well on room air S1, S2 No audible stridor or wheezing Distended abdomen with obesity EOMI, PERRLA Nonfocal neuro exam Data : 07/19/21 17:08 07/19/21 17:08 A&P Assessment and plan (1) Closed right hip fracture: Status: Acute Qualifiers: Encounter type: initial encounter Qualified Code(s): S72.001A - Fracture of unspecified part of neck of right femur, initial encounter for closed fracture (2) Vitamin D deficiency: Status: Acute (3) HTN (hypertension): Status: Acute Qualifiers: Hypertension type: essential hypertension Qualified Code(s): I10 - Essential (primary) hypertension (4) HLD (hyperlipidemia): Status: Acute Qualifiers: Hyperlipidemia type: unspecified Qualified Code(s): E78.5 - Hyperlipidemia, unspecified Plan Right hip fracture N.p.o. 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 No significant disease of the left main, LAD, circumflex, RCA coronary arteries.? Medical management was recommended. He is not on insulin, creatinine level is pending, will be considered RCRI class I risk however I do not recommend any precardiac work-up for the surgical intervention Cardiac diet for tonight and then n.p.o. afterwards Full code Dr. 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
[2021-07-19 17:18] LABS: Basophils # 0.1 10^3/uL (0.0-0.1); Basophils % 0.5 %; Eosinophils # 0.2 10^3/uL (0.0-0.8); Eosinophils % 1.5 %; Hematocrit 43.9 % (42.0-52.0); Hemoglobin 14.4 g/dL (11.7-16.6); Lymphocytes # 1.6 10^3/uL (0.8-4.8); Lymphocytes % 14.9 %; Mean Corpuscular HGB Conc 32.8 g/dL (30.0-36.0); Mean Corpuscular Hemoglobin 30.1 pg (28.0-34.0); Mean Corpuscular Volume 91.8 fl (80-94); Mean Platelet Volume 9.4 fL (7.4-10.4); Monocytes # 0.6 10^3/uL (0.2-0.9); Monocytes % 5.6 %; Neutrophils # 8.06 10^3/uL (1.8-7.7); Neutrophils % 77.2 %; Nucleated Red Blood Cells % 0 %; Platelet Count 248 10^3/cmm (130-400); Red Blood Count 4.78 10^6/uL (4.1-5.3); White Blood Count 10.4 10^3/uL (4.0-10.0)
--- NOTE | 2021-07-19 17:23 | USCV_ITS ---
Andres Sanchez Age: 61 Gender: M : 1960 Exam Date: 07/19/2021 18:51 Ordering Phys: Lluvia Willoughby MD Technologist: AMRIK [place] [facility] [place]: fall, hip fracture BP: 126 / 77 HR: 89 Rhythm: Sinus Technical Quality: Very technically difficult study MEASUREMENTS (Male / Female) Normal Values 2D ECHO LVOT Diameter 2.0 cm LV Ejection Fraction MOD 2C 48.8 % LV Ejection Fraction 2C AL 48.2 % LA Diameter 3.0 cm LA Width 3.0 cm LA Height 4.8 cm RA Width 2.7 cm RA Height 5.0 cm Aorta at Sinotubular Diameter 2.3 cm M-MODE MV E Point Septal Separation 0.7 cm DOPPLER AV Peak Velocity 110.0 cm/s LVOT Peak Velocity 104.0 cm/s AV Area Cont Eq vti 3.6 cm squared AV Area Cont Eq pk 3.0 cm squared MV Peak Velocity 98.0 cm/s MV Area PHT 3.1 cm squared Mitral E to A Ratio 0.6 MV E' Velocity 27.5 cm/s Mitral E to MV E' Ratio 9.9 Mitral E to LV E' Lateral Ratio 9.7 Mitral E to LV E' Septal Ratio 10.1 TR Peak Velocity 207.9 cm/s TR Peak Gradient 17.3 mmHg TR Mean Velocity 143.6 cm/s TR Mean Gradient 9.4 mmHg TR Velocity Time Integral 30.5 cm TV Peak E Velocity 24.0 cm/s FINDINGS Left Ventricle Normal left ventricular size and systolic function, EF 59 %. No regional wall motion abnormalities. Right Ventricle The right ventricle is normal in size and function. Right Atrium The right atrium is normal in size. Left Atrium The left atrium is normal in size. Mitral Valve Moderate mitral annular calcification. Thickened mitral valve. Aortic Valve No gross abnormalities noted Tricuspid Valve Could not be visualized well Pulmonic Valve Could not be visualized Pericardium No pericardial effusion. Aorta Normal ascending aorta dimension. CONCLUSIONS Normal left ventricular size and systolic function, EF 59 %. No regional wall motion abnormalities. Moderate mitral annular calcification. Thickened mitral valve. There is no pericardial effusion. There are no intracardiac masses. No similar previous study is available for comparison. Technically very difficult study. Ejection fraction was estimated using echo contrast Dr Liss Luis MD FACC (Electronically Signed) Final Date: 20 July 2021 12:47 S
[2021-07-19 17:29] LABS: INR 0.96 (0.8-1.2)
[2021-07-19 17:45] LABS: Alanine Aminotransferase 27 U/L (0-41); Albumin Level 4.4 g/dL (3.5-5.2); Alkaline Phosphatase 75 IU/L (40-130); Anion Gap 13.3 (5-19); Aspartate Amino Transferase 17 U/L (0-40); Blood Urea Nitrogen 14 mg/dL (8-23); Calcium 9.5 mg/dL (8.5-10.5); Carbon Dioxide 26 mmol/L (22-29); Chloride 102 mmol/L (98-107); Globulin 2.8 g/dL (1.3-4.6); Glucose 135 mg/dL (65-115); Osmolality Calculated 287 mOsm/kg (285-295); Potassium 4.3 mmol/L (3.5-5.1); Sodium 137 mmol/L (136-145); Total Bilirubin 0.9 mg/dL (0.15-1.2); Total Protein 7.2 g/dL (6.6-8.7)
--- NOTE | 2021-07-19 18:45 | P.CONIM_ITS ---
Providers/Reason For Consult Consulting Physician/Specialty*: Dr. Radha Velasquez Reason for Consult*: Right comminuted subtrochanteric hip fracture Requesting Physician: Dr. Lakisha Abdi Primary Care Provider: GI Garcia History of Present Illness History of Present Illness Andres Sanchez is a 61 year old male who was in his usual state of health when he partially tripped and partially slipped on ice falling directly onto his right hip striking a concrete corner. He states he felt the snap, and EMS was called. The patient was brought to the emergency department where he was diagnosed with a right interrtrochanteric and subtrochanteric comminuted hip fracture. Patient was admitted to the hospitalist team. He was scheduled for surgery on July 18, 2021, the morning following admission. He is known to me for previous trigger finger release. Review of Systems Const: Denies: fever(s), chills, body aches or change in appetite Eyes: Denies: change in vision, blurry vision or eye discomfort ENMT: Denies: throat pain or dental pain Card: Denies: chest pain Resp: Denies: dyspnea GI: Denies: abdominal pain, nausea, vomiting or diarrhea : Denies: flank pain or dysuria Musc: Reports: extremity pain and extremity swelling; Denies: neck pain, back pain or joint warmth Skin/Breast: Reports: surgical incision; Denies: rash Neuro: Denies: headache(s) Psych: Denies: anxiety or depression Endo: Denies: polyuria Theo/Lymph: Denies: easy bruising All/Imm: Denies: urticaria Medications/Allergies Home Medications Medication Instructions Recorded Confirmed Last Taken Type aspirin 81 mg tablet,delayed 81 mg PO DAILY 07/13/19 07/19/21 3 Days Ago History release (Aspir-) ~01/24/21 lisinopril 2.5 mg tablet 2.5 mg PO DAILY #90 tab 01/13/21 07/19/21 01/26/21 Rx rosuvastatin 20 mg tablet 20 mg PO DAILY #90 tab 01/13/21 07/19/21 01/26/21 Rx sildenafil 50 mg tablet (Viagra) 50 mg PO DAILY PRN #10 tab 01/13/21 07/19/21 2 Months Ago Rx ~11/26/20 Allergies Allergy/AdvReac Type Severity Reaction Status Date / Time No Known Allergies Allergy Verified 03/02/21 15:04 PFSH Acute PFSH: Medical History (Updated 07/20/21 @ 11:14 by Radha Velasquez MD) Anxiety Chest pain Coronary artery disease 07/21/2019: Non obstructive disease: 50% proximal stenosis of the circumflex, 50% proximal stenosis of the ramus intermedius. LVEF normal. HLD (hyperlipidemia) HTN (hypertension) Family History Father COPD (chronic obstructive pulmonary disease) Family/Other Cancer Brother Family history of premature coronary artery disease Hypertension Stroke Denies family history of Diabetes CAD (coronary artery disease) Clotting disorder Dementia Hyperlipidemia Psychiatric illness Chronic kidney disease (CKD) Suicide Anesthesia complication Bleeding disorder Lung disease Social History Smoking and tobacco status: current every day smoker Second hand smoke exposure: No Alcohol intake: current Alcohol intake frequency: holidays/special occasions only Lives independently: Yes Household members: spouse Marital status: Current occupational status: employed Current occupation: [employer] History of recent travel: No Current gender identity: Male Dietary Habits: Current diet type/program: regular Caffeine: Yes Exercise: What type of physical activity do you participate in?: none Safety: Seatbelt use: always Home Safety: Working smoke detector in home: Yes Fire extinguisher in home: Yes Carbon monoxide detector in home: Yes Personal Safety: Do you feel safe at home: Yes Vitals/I&O/Wt Last Vital Signs Pulse 75 07/19/21 17:40 Resp 16 07/19/21 17:40 BP 131/80 07/19/21 17:40 Pulse Ox 98 07/19/21 17:40 Weight last 48 hrs Weight 230 lb Physical Exam Const: COMMON NORMALS: no acute distress, average body habitus, patient oriented x3 and alert GENERAL APPEARANCE: cooperative and comfortable ORIENTATION/CONSCIOUSNESS: Yes awake HENMT: COMMON NORMALS: normocephalic and atraumatic HEAD & SCALP: no rmocephalic and atraumatic Eye: GENERAL EYE: appearance normal, both eyes and all related structures Chest: COMMONS NORMALS: normal inspection of the chest Resp: COMMON NORMALS: normal respiratory effort EFFORT & INSPECTION: Yes able to speak in complete sentences and Yes symmetric chest movement Extremity: RIGHT LOWER EXTREMITY: Yes hip joint (Swelling about the hip) Right hip: Yes inspection (Ecchymosis), Yes palpation (Tender), Yes ROM (Not evaluated .) and Yes neurovascular exam (Intact distally with no deficits.) and Yes upper leg (There is significant swelling consistent with the patient's fracture.) Neuro: COMMON NORMALS: patient oriented x3 SENSORIUM/ORIENTATION: Yes alert Psych: COMMON NORMALS: mental status grossly normal APPEARANCE: Yes grossly normal ATTITUDE: Yes calm and Yes engaged ATTENTION/CONCENTRATION: Yes attention grossly intact Skin: COMMON NORMALS: no rashes or lesions noted GENERAL SKIN EXAM: no rashes or lesions noted Urinary Catheter Management: Russo: Cath Placed During This Visit: yes Reason for Continuing Indwelling Catheter: Required Immobilization for Trauma or Surgery or Anesthesia Urinary Catheter Date of Insertion: 07/19/21 Data : 07/20/21 01:39 07/20/21 01:39 Xray Ortho: I personally reviewed and interpreted this imaging study as follows: My impression: There is a comminuted displaced fracture involving the right proximal femur. This involves the intertrochanteric region as well as subtrochanteric region. There is no continuity, and there is significant comminution. A&P Assessment and plan (1) Subtrochanteric fracture of right femur: This 61-year-old patient was admitted through the emergency department last evening to the medical service. He is previously known to me with complaints of trigger finger which was surgically released. Currently, he presents with a proximal femur fracture involving the intertrochanteric and subtrochanteric regions of the femur. This is a comminuted fracture with significant displacement. The patient was seen and evaluated. He was scheduled for a gamma 3 trochanteric nail. I have explained to him the risks and complications including further bleeding. I also discussed with him the length of time for healing of this fracture. He understands that rotational and length deformities are a potential complication. Status: Acute Qualifiers: Encounter type: initial encounter Fracture type: closed Fracture al ignment: displaced Qualified Code(s): S72.21XA - Displaced subtrochanteric fracture of right femur, initial encounter for closed fracture (2) Closed intertrochanteric fracture of right hip: Status: Acute Qualifiers: Encounter type: initial encounter Fracture alignment: displaced Qualified Code(s): S72.141A - Displaced intertrochanteric fracture of right femur, initial encounter for closed fracture Consult Attestations Medical Necessity Statement: Patient requires inpatient monitoring for medical and surgical issues following a comminuted intertrochanteric hip fracture. 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 Fwd Diagnoses Closed intertrochanteric fracture of right hip S72.141A Encounter type: initial encounter Fracture alignment: displaced Subtrochanteric fracture of right femur S72.21XA Encounter type: initial encounter Fracture type: closed Fracture alignment: displaced
[2021-07-19] MEDS: perflutren protein-a microsphr 0.22 mg/mL SDV 3 mL IV (19:27)
[2021-07-19] MEDS: HYDROmorphone 1 mg/mL INJ 1 mL 0.4 MG IVP (20:47)
[2021-07-19] MEDS: metoprolol tartrate 25 mg Tablet 12.5 MG PO (23:08)
[2021-07-20] VITALS (16 sets, daily range): BP systolic 109–133; BP diastolic 51–85; PULSE 83–122; RESP 13–22; TEMP 36.3–37.1; O2SAT 90–97
--- NOTE | 2021-07-20 | SCC_ITS ---
Procedure done: Open reduction internal fixation right intertrochanteric and subtrochanteric severely comminuted proximal femur fractures 343.4 seconds of fluoroscopic guidance, for a cumulative dose of 74.83 mGy, was provided to Dr. Velasquez by the radiology department. C-arm images of the right hip were saved for the patient's permanent record. [facility]
--- NOTE | 2021-07-20 | XR_ITS ---
WS: [id number] Exam: XR femur RT min 2V* [id number] Date/Time of Exam: 07/20/2021 12:00 AM Reason For Exam: orif right hip fracture There is internal orthopedic fixation involving an intertrochanteric-subtrochanteric fracture of the right femur. A femoral neck screw and long intramedullary percy stabilizes a fracture in satisfactory a lignment for healing. XR/XR femur RT min 2V* [id number] IMPRESSION: 1. Satisfactory internal orthopedic fixation involving an intertrochanteric-sub trochanteric fracture of the right femur.
[2021-07-20 02:54] LABS: Basophils # 0.1 10^3/uL (0.0-0.1); Basophils % 0.6 %; Eosinophils % 0.2 %; Hematocrit 42.2 % (42.0-52.0); Hemoglobin 13.9 g/dL (11.7-16.6); Lymphocytes # 1.3 10^3/uL (0.8-4.8); Lymphocytes % 11.8 %; Mean Corpuscular HGB Conc 32.9 g/dL (30.0-36.0); Mean Corpuscular Hemoglobin 30.5 pg (28.0-34.0); Mean Corpuscular Volume 92.7 fl (80-94); Mean Platelet Volume 9.7 fL (7.4-10.4); Monocytes # 1.1 10^3/uL (0.2-0.9); Monocytes % 9.7 %; Neutrophils # 8.79 10^3/uL (1.8-7.7); Neutrophils % 77.4 %; Nucleated Red Blood Cells % 0 %; Platelet Count 279 10^3/cmm (130-400); Red Blood Count 4.55 10^6/uL (4.1-5.3); Red Cell Distribution Width 13.3 % (12.1-15.1); White Blood Count 11.4 10^3/uL (4.0-10.0)
[2021-07-20 03:21] LABS: Blood Urea Nitrogen 14 mg/dL (8-23); Calcium 9.5 mg/dL (8.5-10.5); Carbon Dioxide 23 mmol/L (22-29); Chloride 102 mmol/L (98-107); Glucose 137 mg/dL (65-115); Magnesium 2.1 mg/dL (1.7-2.3); Osmolality Calculated 285 mOsm/kg (285-295); Sodium 136 mmol/L (136-145)
[2021-07-20 03:23] LABS: Anion Gap 15.8 (5-19); Potassium 4.8 mmol/L (3.5-5.1)
[2021-07-20] MEDS: HYDROmorphone 1 mg/mL INJ 1 mL 0.4 MG IVP ×2 (04:53→08:49)
[2021-07-20] MEDS: sennosides-docusate Tablet 1 TAB PO (08:48)
[2021-07-20] MEDS: metoprolol tartrate 25 mg Tablet 12.5 MG PO ×2 (08:48→21:12)
[2021-07-20] MEDS: amlodipine 10 mg Tablet PO (08:49)
--- NOTE | 2021-07-20 09:44 | PC.CHAP ---
Pastoral Care Encounter/Spiritual Assessment Type of Contact [] Declined director social service visit [] Patient/Family/Request visit [] Outpatient visit [] Follow-up visit [] Physician referral [] Code/Alert [x] Routine visit [] Staff referral [] Actively dying [] Patient sleeping [] Family support [] [] Out of room [] Palliative care [] [] Receiving care in room [] Pre-surgical visit [] Trauma [] Long length of stay [] ICU visit [] Other: Relational/Emotional Strength [x] Patient feels connected with others/family/visitors/staff [] Distress [] Loneliness/isolation [] Abandonment Spirituality of Patient [x] Person of Tiffany [x] Attends Oriental Orthodox of their Tiffany [x] Believes in Prayer [] Reads Bible or Methodist materials [] There are Spiritual issues to be addressed Crowning Inspector Interventions [x] Prayer [x] Active listening [x] Non-anxious presence [] Spiritual/emotional support [] Crisis/trauma care [] Spiritual counseling [] Bereavement support [] Provided bereavement packet [] Provided Bible/devotional materials [] Provided toy/stuffed animal, coloring book to patient or family member [] Provided Communion [] Anointing/[place] [] Salvation [x] Completed spiritual assessment [] Other: Impact on Illness or Injury [] Angry [] Fearful [] Anxious [] Often cries [] Exhaustion [] Unable to work [] Unable to attend rastafari [] Unable to walk/stand [] Unable to read [] Unable to drive [] Unable to eat/drink [] Unable to sleep [] Unable to be with family [] Patient intubated [] Other: Summary Time spent with patient 10 min
--- NOTE | 2021-07-20 09:59 | P.PN_ITS ---
Subjective Subjective: Patient is scheduled for surgery around 11 AM, will check with the community health educator who informed about the time Patient to speak with Dr. Velasquez today No overnight events Pain currently under control with use of opioids Echo has been taken report is pending Vitals/I&O/Wt Last Vital Signs Temp 97.8 F 07/20/21 07:00 Pulse 101 H 07/20/21 08:49 Resp 16 07/20/21 08:49 BP 121/81 07/20/21 07:00 Pulse Ox 93 07/20/21 08:49 07/19/21 07/20/21 07/20/21 22:59 06:59 14:59 Intake Total 280 / 280 Output Total 700 / 700 Balance -420 / -420 Weight last 48 hrs Weight 113.806 kg Weight 104.326 kg Physical Exam Narrative: Patient is n.p.o. Not in acute distress Doing well on room air No audible stridor. Abdomen soft nontender risk for obesity No signs of edema Right leg is short and rotated Russo catheter draining dilute urine Nonfocal neuro exam Urinary Catheter Management: Russo: Cath Placed During This Visit: yes Reason for Continuing Indwelling Catheter: Required Immobilization for Trauma or Surgery or Anesthesia Urinary Catheter Date of Insertion: 07/19/21 Data : 07/20/21 01:39 07/20/21 01:39 A&P Assessment and plan (1) Closed right hip fracture: Status: Acute Qualifiers: Encounter type: initial encounter Qualified Code(s): S72.001A - Fracture of unspecified part of neck of right femur, initial encounter for closed fracture (2) Vitamin D deficiency: Status: Acute (3) Fatigue: Status: Acute Qualifiers: Fatigue type: chronic, unspecified Qualified Code(s): R53.82 - Chronic fatigue, unspecified (4) Coronary artery disease: Status: Chronic Qualifiers: Coronary Disease-Associated Artery/Lesion type: [place] artery [place] vs. transplanted heart: [place] heart Associated angina: angina presence unspecified Qualified Code(s): I25.10 - Atherosclerotic heart disease of [place] coronary artery without angina pectoris (5) HTN (hypertension): Status: Acute Qualifiers: Hypertension type: essential hypertension Qualified Code(s): I10 - Essential (primary) hypertension Plan Right hip fracture, awaiting intervention today Echo report is pending, pictures have been taken Hemodynamically stable Lisinopril has been stopped Not on any anticoagulation We will follow up after his surgery today Full code N.p.o. Analgesia with bowel regimen Attestations Medical Necessity Statement*: Continue hospitalization Time Spent in Patient Care: 20mins Coding Level of Care Code Acute Medical Administrative Technician for Chg Fwd Diagnoses Closed right hip fracture S72.001A Encounter type: initial encounter Vitamin D deficiency E55.9 Fatigue R53.82 Fatigue type: chronic, unspecified Coronary artery disease I25.10 Coronary Disease-Associated Artery/Lesion type: [place] artery [place] vs. transplanted heart: [place] heart Associated angina: angina presence unspecified HTN (hypertension) I10 Hypertension type: essential hypertension
[2021-07-20] MEDS: sodium chloride 0.9% 1,000 ML 30 ML IV (11:07)
[2021-07-20] MEDS: fentaNYL 50 mcg/mL INJ 2mL IVP (11:08)
--- NOTE | 2021-07-20 11:10 | ANES.PREANE2 ---
Pre-Anesthetic Assessment Height/Weight: Height 1.83 m Weight 113.806 kg Temp Pulse Resp BP Pulse Ox 98.4 F 96 16 126/85 97 07/20/21 10:30 07/20/21 10:30 07/20/21 11:08 07/20/21 10:30 07/20/21 11:08 Preop Diagnosis: Right comminuted subtrochanteric hip fracture Operation Date: 07/20/21 11:00 Proposed Procedures p Trochanteric Femoral Nail(Right) - Radha Velasquez MD Was Beta Dominic taken within 24 hours: N/A Was Clonidine taken within 24 hours: N/A Last intake: Intake Last Liquid Date 07/19/21 Last Liquid Time 23:30 Last Solid Date 07/19/21 Last Solid Time 13:00 Social No alcohol and No tobacco Exam alert, oriented x 3, clear to auscultation bilaterally and regular rate & rhythm Airway Submandibular: within normal limits Cervical ROM: within normal limits Mallampati: Class III Dentition: chipped Pulmonary None reported CV/HEM Coronary Artery Disease and Hypertension Mild CAD on cath 2019 done after positive stress test findings as below Stress Test 05/29/2019 CONCLUSION: 1. Positive EKG response to treadmill exercise. There was 2 to [address] depression and T wave inversion in infero-lateral leads at peak exercise. 2. No exercise-induced chest pain or cardiac arrhythmia 3. Fair exercise tolerance, attained a maximum of 10.2 METs. Maximum VO2 of 35.7 mL/kg/min. 4. Baseline hypertension with hypertensive response to exercise. Cath report 06/2019 Diagnostic Findings ? Patient with somewhat atypical pain but a positive treadmill stress test. Coronary angiography recommended. ? Coronary angiography reveals right coronary artery dominance.? The left main coronary artery is normal.? Circumflex is a relatively small vessel and contains a 50% stenosis proximally but otherwise mild diffuse luminal irregularities.? There is a small ramus intermedius artery which contains a 50% stenosis proximally but otherwise no significant stenoses.? The LAD is a moderate size vessel and gives off 2 diagonal branches.? There is mild diffuse luminal irregularities of the LAD and diagonals.? The proximal vessels are heavily calcified.? The right coronary artery is a large dominant vessel and ends distally as several small posterior left ventricular branches and a posterior descending artery.? There is mild diffuse luminal irregularity but no significant stenoses. None reported Hepatic None reported GI None reported Metabolic None reported Musc/skel None reported Neuropsych None reported Anesthetic Plan ASA status: 2 Anesthesia: Anesthesia Evaluation and General Other: We discussed risk and benefits of general vs spinal anesthesia including DVT risk, infection, paralysis/catastrophic nerve injury, back bruising/pain, PDPH, conversion to general in case of spinal, PONV, sore throat (sometimes severe), corneal abrasion, positioning and peripheral nerve injuries, life threatening allergic reaction, post operative ICU admission requiring prolonged intubation, stroke, heart attack, , and rare incidences of recall. Patient prefers general. Risk of > 500 ml blood loss (7ml/kg in children): No Medications/Allergies Home Medications Medication Instructions Recorded Confirmed Last Taken Type aspirin 81 mg tablet,delayed 81 mg PO DAILY 07/13/19 07/19/21 3 Days Ago History release (Aspir-) ~01/24/21 lisinopril 2.5 mg tablet 2.5 mg PO DAILY #90 tab 01/13/21 07/19/21 01/26/21 Rx rosuvastatin 20 mg tablet 20 mg PO DAILY #90 tab 01/13/21 07/19/21 01/26/21 Rx sildenafil 50 mg tablet (Viagra) 50 mg PO DAILY PRN #10 tab 01/13/21 07/19/21 2 Months Ago Rx ~11/26/20 Allergies Allergy/AdvReac Type Severity Reaction Status Date / Time No Known Allergies Allergy Verified 03/02/21 15:04 Current Medications Generic Name Dose Route Start Last Admin Trade Name Freq PRN Reason Stop Dose Admin Amlodipine Besylate 10 mg 07/20/21 09:00 07/20/21 08:49 Amlodipine 10 Mg Tablet PO 10 mg DAILY WILSON Administration Fentanyl 50 mcg 07/20/21 10:43 07/20/21 11:08 Fentanyl 50 Mcg/Ml Inj 2ml IVP 50 mcg Q10M PRN Administration Preop Pain Hydromorphone HCl 0.4 mg 07/19/21 17:15 07/20/21 08:49 Hydromorphone 1 Mg/Ml Inj 1 Ml IVP 0.4 mg Q4H PRN Administration AGITATION Sodium Chloride 1,000 mls @ 30 mls/hr 07/20/21 10:45 07/20/21 11:07 Sodium Chloride 0.9% IV 07/21/21 10:44 30 mls/hr .Q24H WILSON Administration Metoprolol Tartrate 12.5 mg 07/19/21 21:00 07/20/21 08:48 Metoprolol Tartrate 25 Mg Tablet PO 12.5 mg BID@0900,2100 WILSON Administration Senna/Docusate Sodium 1 tab 07/20/21 09:00 07/20/21 08:48 Sennosides-Docusate Tablet PO 1 tab DAILY WILSON Administration PFSH Anesthesia Medical History (Updated 07/20/21 @ 11:12 by Radha Velasquez MD) Anxiety Chest pain Coronary artery disease 07/21/2019: Non obstructive disease: 50% proximal stenosis of the circumflex, 50% proximal stenosis of the ramus intermedius. LVEF normal. HLD (hyperlipidemia) HTN (hypertension) Family History Father COPD (chronic obstructive pulmonary disease) Family/Other Cancer Brother Family history of premature coronary artery disease Hypertension Stroke Denies family history of Diabetes CAD (coronary artery disease) Clotting disorder Dementia Hyperlipidemia Psychiatric illness Chronic kidney disease (CKD) Suicide Anesthesia complication Bleeding disorder Lung disease Social History Smoking and tobacco status: current every day smoker Second hand smoke exposure: No Alcohol intake: current Alcohol intake frequency: holidays/special occasions only Lives independently: Yes Household members: spouse Marital status: Current occupational status: employed Current occupation: [employer] History of recent travel: No Current gender identity: Male Data Anesthesia : 07/20/21 01:39 07/20/21 01:39 Short CBC 07/19/21 07/20/21 Range/Units 17:08 01:39 WBC 10.4 H 11.4 H (4.0-10.0) 10^3/uL Hgb 14.4 13.9 (11.7-16.6) g/dL Hct 43.9 42.2 (42.0-52.0) % MCV 91.8 92.7 (80-94) fl Plt Count 248 279 (130-400) 10^3/cmm Neut % (Auto) 77.2 77.4 % Neut # (Auto) 8.06 H 8.79 H (1.8-7.7) 10^3/uL BMP 07/19/21 07/20/21 17:08 01:39 Sodium 137 136 Potassium 4.3 4.8 Chloride 102 102 Carbon Dioxide 26 23 BUN 14 14 Creatinine 0.6 L 0.6 L Glucose 135 H 137 H Calcium 9.5 9.5 Liver Function 07/19/21 Range/Units 17:08 Total Bilirubin 0.9 (0.15-1.2) mg/dL AST 17 (0-40) U/L ALT 27 (0-41) U/L Alkaline Phosphatase 75 (40-130) IU/L Albumin 4.4 (3.5-5.2) g/dL Coags 07/19/21 07/20/21 17:08 01:39 PT 13.00 INR 0.96 C-Reactive Protein 3.0 Cardiac Studies: No Data to Display
--- NOTE | 2021-07-20 11:23 | SUR.PREOP ---
11:10 medicated for right hip pain per doctor Gail.
[2021-07-20] MEDS: CELEcoxib 200 mg Capsule 400 MG PO (11:40)
[2021-07-20] MEDS: acetaminophen 1,000 MG/100 ML PIGGYBACK 400 MG IV ×2 (11:41→19:46)
[2021-07-20] MEDS: ceFAZolin 1,000 mg SDV 1000 MG IRRIGATION (13:17)
--- NOTE | 2021-07-20 14:38 | P.OP_ITS ---
Operative Report Date of procedure: July 20, 2021 Pre-op diagnosis: Right comminuted subtrochanteric and intertrochanteric hip fracture Post-op diagnosis: Right comminuted subtrochanteric and intertrochanteric hip fracture Post-op findings: Severe comminution of subtrochanteric and intertrochanteric hip fractures with displacement. Procedure done: Open reduction internal fixation right intertrochanteric and subtrochanteric severely comminuted proximal femur fractures Implants: Gamma 3 trochanteric nail size 13 x 380 mm x 125 degrees with a proximal lag screw size 10.5 mm x 120 mm and a distal locking screw size 5 mm x 45 mm Specimens removed/disposition: None Pathology: none sent Surgeon: Radha Velasquez Supervisor Furnace Process: [facility] operating room technicians Anesthesia: General (Intubated, ASA 2) Estimated blood loss (mL): 100 IV fluids (mL): 1,100 Urine output (mL): 400 Complications: None Findings: Severe comminution and displacement of proximal femur fracture involving the intertrochanteric and subtrochanteric areas Condition: stable Disposition: PACU (Then return to floor for postoperative rehabilitation and pain management) Brief History: This 61-year-old gentleman was in his usual state of health when he lost his balance and partially slipped on ice falling and striking his right hip laterally on the corner of a concrete edge. Patient was brought to the hospital via a emergency medical services. He was admitted to the hospitalist team, and subsequently, he was seen and evaluated and scheduled for surgical intervention in the form of an open reduction internal fixation. Risks and complications were discussed with him. Consents were signed as well preoperatively. Procedure: Patient was brought to the operating theater. After undergoing adequate general anesthesia with intubation, the patient was transferred to the fracture table, positioned on the table and fluoroscopic guidance obtained throughout the surgical procedure. Prior to the commencement of the surgical procedure, a surgical pause was performed. At the time of the surgical pause, we confirmed the site and side of surgery as well as preoperative surgical markings and appropriate and timely administration of IV antibiotics, Ancef 2 g. Availability of equipment was also confirmed. Fluoroscopy was used to confirm the fracture was appropriately reduced in both AP and lateral planes. Reduction was difficult, and it required the use of external pressure device in the form of a crutch. We were able to reduce the fracture to a position where we could place the hardware. An incision was then made slightly above the greater trochanter to allow access to the greater trochanter. An awl was used to enter the greater trochanter and a guidewire was subsequently placed. Once the guidewire was confirmed to be in appropriate position in AP and lateral planes, an exchange tube was placed followed by the long guidewire as I did not want a lose the position obtained with the initial guidewire. Once the long guidewire was placed, reaming was accomplished over this to allow for the proximal diameter of the nail. Reaming was then accomplished over the long guidewire. We reamed to a size 15 to allow for passage of a size 13 trochanteric nail. A 13 mm nail with a 380 mm length was chosen once the long guidewire was passed. This was placed into appropriate position with positioning being confirmed in AP and lateral planes on the x-ray. It passed without difficulty. Guidewire was then passed through the jigging system into the femoral head. We wanted to be center or slightly inferior and posterior to center. Guidewire was placed into appropriate position. Once the guidewire was in appropriate position and this position was confirmed by x-ray. Manipulation was accomplished utilizing the jig system to allow the guidewire to be placed in this appropriate position. This was then measured and we chose a 120 mm lag screw. We reamed to allow for the lag screw to be placed. The 120 mm lag screw was then passed into the femoral head through the trochanteric nail. This was passed uneventfully and again position was confirmed in AP and lateral planes. Compression was obtained under fluoroscopic guidance. The set screw was then placed in position, tightened completely, and subsequently backed off 1/ turn. The construct was left in position and attention was directed distally. The jig system was removed without difficulty once this was accomplished. Following this, attention was directed to the distal screw holes. We plan to use the static screw hole and a perfect [place] technique was utilized. Once we had drilled for the distal screw, it was measured with a depth gauge. The appropriate length screw was then obtained and placed in position without dif ficulty. Once the screw was in position, we confirmed appropriate placement of the components. Attention was then directed to closure. The hip was copiously irrigated with normal saline with antibiotics. Following this it was dried and closed. Tensor fascia jaquelin was closed proximally with 0 Vicryl in an interrupted fashion. Subcutaneous tissues were closed with 2-0 Monocryl, and the skin was closed with a continuous 3-0 Monocryl subcuticular stitch. This was then covered with Dermabond, Steri-Strips, and OpSite. The patient was removed from the fracture table and returned to recovery in satisfactory condition. The patient will be discharged to the floor for postoperative rehabilitation and pain management. There were no specimens obtained. H&H will be monitored as there was significant swelling in the thigh consistent with a hematoma from osseous fracture bleeding. Related Problem List Diagnoses (1) Closed intertrochanteric fracture of right hip: (2) Subtrochanteric fracture of right femur:
--- NOTE | 2021-07-20 15:12 | ANE.PACU2 ---
Inpatient post-anesthesia follow up: Airway intact: Yes Vital signs: Temperature 98.3 F Pulse Rate 92 Respiratory Rate 18 Blood Pressure 117/64 Pulse Oximetry 92 Oxygen Delivery Me thod Room Air Oxygen Flow Rate 6 Fraction of Inspir ed Oxygen Hydration adequate: Yes Nausea and vomiting: No Pain level: 1 Mental status: Baseline
[2021-07-20 18:53] LABS: Hematocrit 37.1 % (42.0-52.0); Hemoglobin 12.2 g/dL (11.7-16.6)
[2021-07-20] MEDS: CELEcoxib 200 mg Capsule PO (21:12)
[2021-07-20] MEDS: oxyCODONE 5 mg IR Tab/Cap PO (22:47)
[2021-07-21] VITALS (7 sets, daily range): BP systolic 110–129; BP diastolic 61–72; PULSE 88–109; RESP 16–19; TEMP 36.3–37.2; O2SAT 93–96
[2021-07-21] MEDS: acetaminophen 1,000 MG/100 ML PIGGYBACK 400 MG IV ×2 (03:23→12:00)
[2021-07-21 05:13] LABS: Basophils % 0.2 %; Eosinophils % 0.1 %; Hematocrit 32.2 % (42.0-52.0); Hemoglobin 10.3 g/dL (11.7-16.6); Lymphocytes # 1.5 10^3/uL (0.8-4.8); Lymphocytes % 15.8 %; Mean Corpuscular Hemoglobin 29.9 pg (28.0-34.0); Mean Corpuscular Volume 93.6 fl (80-94); Mean Platelet Volume 9.7 fL (7.4-10.4); Monocytes # 1.1 10^3/uL (0.2-0.9); Monocytes % 12.1 %; Neutrophils # 6.61 10^3/uL (1.8-7.7); Neutrophils % 71.6 %; Nucleated Red Blood Cells % 0 %; Platelet Count 218 10^3/cmm (130-400); Red Blood Count 3.44 10^6/uL (4.1-5.3); Red Cell Distribution Width 13.1 % (12.1-15.1); White Blood Count 9.2 10^3/uL (4.0-10.0)
[2021-07-21 05:31] LABS: Anion Gap 15.5 (5-19); Blood Urea Nitrogen 16 mg/dL (8-23); Calcium 8.2 mg/dL (8.5-10.5); Carbon Dioxide 23 mmol/L (22-29); Chloride 101 mmol/L (98-107); Glucose 125 mg/dL (65-115); Osmolality Calculated 283 mOsm/kg (285-295); Potassium 4.5 mmol/L (3.5-5.1); Sodium 135 mmol/L (136-145)
[2021-07-21] MEDS: aspirin 325 mg EC Tablet PO (07:20)
[2021-07-21] MEDS: CELEcoxib 200 mg Capsule PO ×2 (07:20→20:55)
[2021-07-21] MEDS: metoprolol tartrate 25 mg Tablet 12.5 MG PO ×2 (07:20→20:55)
[2021-07-21] MEDS: oxyCODONE 5 mg IR Tab/Cap PO ×2 (07:20→14:11)
[2021-07-21] MEDS: sennosides-docusate Tablet 1 TAB PO (07:20)
[2021-07-21] MEDS: amlodipine 10 mg Tablet PO (07:21)
--- NOTE | 2021-07-21 14:16 | P.PN_ITS ---
Subjective Subjective: Patient was seen and examined this morning, PT recommended home exercise program, patient will be discharged on Saturday he is having ramp built in his house Vitals/I&O/Wt Last Vital Signs Temp 97.6 F 07/21/21 11:39 Pulse 109 H 07/21/21 11:39 Resp 18 07/21/21 11:39 BP 111/72 07/21/21 11:39 Pulse Ox 93 07/21/21 11:39 07/20/21 07/21/21 07/21/21 22:59 06:59 14:59 Intake Total 904 / 2064 620 / 2684 240 / 240 Output Total 800 / 1700 Balance 904 / 1164 -180 / 984 240 / 240 Weight last 48 hrs Weight 113.806 kg Weight 104.326 kg Physical Exam Narrative: Patient is laying flat surgical site is swollen however no active bleeding, No signs of ischemia of legs Awake and alert Doing well on room air No audible stridor or wheezing S1, S2 Not in any active distress Able to work with PT Soft abdomen Urinary Catheter Management: Russo: Cath Placed During This Visit: yes Reason for Continuing Indwelling Catheter: Perioperative Use in Selected Surgeries Urinary Catheter Date of Insertion: 07/19/21 Data : 07/21/21 04:47 07/21/21 04:47 A&P Assessment and plan (1) Closed intertrochanteric fracture of right hip: Status: Acute Qualifiers: Encounter type: initial encounter Fracture alignment: displaced Qualified Code(s): S72.141A - Displaced intertrochanteric fracture of right femur, initial encounter for closed fracture (2) Subtrochanteric fracture of right femur: Status: Acute Qualifiers: Encounter type: initial encounter Fracture type: closed Fracture alig nment: displaced Qualified Code(s): S72.21XA - Displaced subtrochanteric fracture of right femur, initial encounter for closed fracture (3) Closed right hip fracture: Status: Acute Qualifiers: Encounter type: initial encounter Qualified Code(s): S72.001A - Fracture of unspecified part of neck of right femur, initial encounter for closed fracture Plan Hip fracture status post intervention 07/20 Postop day one No postop complications, drop in hemoglobin noted A lot of bleeding around the fracture was noted by the orthopedic surgeon, Dr. Velasquez did update me about that finding He has been hemodynamically stable Monitor H&H PT recommended home excise program Russo catheter discontinued Bowel regimen with analgesia Full code Echo is unremarkable Cardiac diet DVT prophylaxis covered with aspirin 325 mg daily Would use Lovenox 40 mg daily as well Attestations Medical Necessity Statement*: Discharge tomorrow Time Spent in Patient Care: 25mins Coding Level of Care Code Acute Recruiter Specialist for Chg Fwd Diagnoses Closed intertrochanteric fracture of right hip S72.141A Encounter type: initial encounter Fracture alignment: displaced Subtrochanteric fracture of right femur S72.21XA Encounter type: initial encounter Fracture type: closed Fracture alignment: displaced Closed right hip fracture S72.001A Encounter type: initial encounter
--- NOTE | 2021-07-21 15:46 | P.PN_ITS ---
Subjective Subjective: Patient is seen in his room after physical therapy was accomplished today. He did well, but he is still not completely safe to ambulate steps. The patient is required to use steps to gain entrance to his home. He is able to have a friend come to make him a ramp tomorrow morning, and he is maintained in hospital for safety secondary to needing a ramp to enter his home. Medications: Reviewed: Yes Vitals/I&O/Wt Last Vital Signs Temp 97.6 F 07/21/21 11:39 Pulse 109 H 07/21/21 11:39 Resp 18 07/21/21 11:39 BP 111/72 07/21/21 11:39 Pulse Ox 93 07/21/21 11:39 07/21/21 07/21/21 07/21/21 06:59 14:59 22:59 Intake Total 620 / 2684 580 / 580 Output Total 800 / 1700 Balance -180 / 984 580 / 580 Weight last 48 hrs Weight 250 lb 14.4 oz Weight 230 lb Physical Exam Const: COMMON NORMALS: no acute distress, average body habitus, patient oriented x3 and alert GENERAL APPEARANCE: cooperative and comfortable ORIENTATION/CONSCIOUSNESS: Yes awake HENMT: COMMON NORMALS: normocephalic and atraumatic HEAD & SCALP: normocephalic and atraumatic Eye: GENERAL EYE: appearance normal, both eyes and all related structures Chest: COMMONS NORMALS: normal inspection of the chest Resp: COMMON NORMALS: normal respiratory effort EFFORT & INSPECTION: Yes able to speak in complete sentences and Yes symmetric chest movement Extremity: RIGHT LOWER EXTREMITY: Yes hip joint Right hip: Yes inspection (Dressings are dry and intact.), Yes palpation (Minimal tenderness to palpation.), Yes ROM (Not evaluated.) and Yes neurovascular exam (Intact.) and Yes upper leg (There is still swelling present in the upper leg secondary to fx bleeding) Neuro: COMMON NORMALS: patient oriented x3 SENSORIUM/ORIENTATION: Yes alert Psych: COMMON NORMALS: mental status grossly normal APPEARANCE: Yes grossly normal ATTITUDE: Yes calm and Yes engaged ATTENTION/CONCENTRATION: Yes attention grossly intact Skin: COMMON NORMALS: no rashes or lesions noted GENERAL SKIN EXAM: no rashes or lesions noted Urinary Catheter Management: Russo: Cath Placed During This Visit: yes Reason for Continuing Indwelling Catheter: Perioperative Use in Selected Surgeries Urinary Catheter Date of Insertion: 07/19/21 Data : 07/21/21 04:47 07/21/21 04:47 A&P Assessment and plan (1) Subtrochanteric fracture of right femur: This 61-year-old patient was admitted through the emergency department last evening to the medical service. He is previously known to me with complaints of trigger finger which was surgically released. The patient worked with physical therapy today. He is still not considered safe for ambulation on stairs, and these are required to gain entrance to his home. He will remain in the hospital for 1 additional night for further physical therapy and independence in ambulation with crutches. The patient has a friend building him a ramp for his home. He is to continue touchdown weightbearing. Prescriptions are written today for Celebrex, Tylenol, and oxycodone. Aspirin, 1/day, is also prescribed for DVT prophylaxis. Appointment is made for follow-up. The patient denies any other issues at this time. Status: Acute Qualifiers: Encounter type: initial encounter Fracture type: closed Fracture alignment: displaced Qualified Code(s): S72.21XA - Displaced subtrochanteric fracture of right femur, initial encounter for closed fracture (2) Closed intertrochanteric fracture of right hip: See above Status: Acute Qualifiers: Encounter type: initial encounter Fracture alignment: displaced Qualified Code(s): S72.141A - Displaced intertrochanteric fracture of right f emur, initial encounter for closed fracture Attestations Medical Necessity Statement*: Patient requires ongoing inpatient status for recovery from right hip fracture and ongoing physical therapy for stability and independence. Coding Level of Care Code Acute Bowling Floor Desk Clerk for Dwayne Jones Diagnoses Closed intertrochanteric fracture of right hip S72.141A Encounter type: initial encounter Fracture alignment: displaced Subtrochanteric fracture of right femur S72.21XA Encounter type: initial encounter Fracture type: closed Fracture alignment: displaced
[2021-07-21] MEDS: enoxaparin 40 mg/0.4 mL Syringe SUBCUT (16:02)
[2021-07-21] MEDS: acetaminophen 500 mg Tablet 1000 MG PO (19:47)
[2021-07-22] VITALS: BP 113/71; PULSE 93; RESP 18; TEMP 36.7; O2SAT 95
[2021-07-22] MEDS: acetaminophen 500 mg Tablet 1000 MG PO (03:45)
[2021-07-22 04:00] VITALS: BP 128/76; PULSE 101; RESP 18; TEMP 37; O2SAT 94
[2021-07-22 04:54] LABS: Hematocrit 28.9 % (42.0-52.0)
[2021-07-22 07:19] VITALS: BP 128/69; PULSE 100; RESP 16; TEMP 36.9; O2SAT 95
[2021-07-22] MEDS: sennosides-docusate Tablet 1 TAB PO (08:29)
[2021-07-22] MEDS: amlodipine 10 mg Tablet PO (08:29)
[2021-07-22] MEDS: aspirin 325 mg EC Tablet PO (08:29)
[2021-07-22] MEDS: CELEcoxib 200 mg Capsule PO (08:29)
[2021-07-22] MEDS: metoprolol tartrate 25 mg Tablet 12.5 MG PO (08:30)
[2021-07-22 09:53] VITALS: RESP 18; O2SAT 95
[2021-07-22] MEDS: oxyCODONE 5 mg IR Tab/Cap PO (09:53)
--- NOTE | 2021-07-22 10:47 | PM.DCS ---
Discharge Providers Date of Admission: 07/19/21 16:51 Date of Discharge: July 22, 2021 Attending Provider at Admission: Lluvia Willoughby MD Attending Provider at Discharge: Lluvia Willoughby MD Primary Care Provider: GI Garcia Diagnoses at Discharge Discharge Diagnosis (1) Subtrochanteric fracture of right femur: Status: Acute Qualifiers: Encounter type: initial encounter Fracture type: closed Fracture alignment: displaced Qualified Code(s): S72.21XA - Displaced subtrochanteric fracture of right femur, initial encounter for closed fracture (2) Closed intertrochanteric fracture of right hip: Status: Acute Qualifiers: Encounter type: initial encounter Fracture alignment: displaced Qualified Code(s): S72.141A - Displaced intertrochanteric fracture of right femur, initial encounter for closed fracture Reason for Visit Reason for Visit: FALL/ R HIP PAIN Hospital Course Hospital Course Patient was admitted on 07/19 for management and intervention for his right hip fracture, after falling on ice in a bad weather when he was trying to get inside his home from his backyard. No chest pain syncope or seizure-like activity. He attributed his fall to losing balance. Echo showed EF 59% no wall motion abnormality which was done for preop work-up. He went for surgical intervention on 07/20 (Open reduction internal fixation right intertrochanteric and subtrochanteric severely comminuted proximal femur fractures Gamma 3 trochanteric nail size 13 x 380 mm x 125 degrees with a proximal lag screw size 10.5 mm x 120 mm and a distal locking screw size 5 mm x 45 mm). Orthopedic surgeon Dr. Wagner called me to update me regarding extravasation of blood that she noticed during surgery around proximal thigh. His hemoglobin has dropped from 12>>>9. Hemodynamic no instability. There is swelling in his proximal thigh. Patient was made aware, at the time of discharge he will get CBC follow-up prescription. Hemoglobin at the time of discharge is 9 hemodynamically stable. He will get DVT prophylaxis for 2 weeks with aspirin therapeutic dose. I am giving him oxycodone and bowel regimen as well he will see Dr. Wagner in July. PT recommended home exercise program, patient does not want to use her walker, he is planning to borrow a walker from a friend. Ramp has been built at his place. Physical Exam Narrative: Patient is laying flat surgical site is swollen however no active bleeding, No signs of ischemia of legs Awake and alert Doing well on room air No audible stridor or wheezing S1, S2 Not in any active distress Able to work with PT Soft abdomen Urinary Catheter Management: Russo: Cath Placed During This Visit: yes, but has since been removed by the nurse Reason for Continuing Indwelling Catheter: Decision to DC Catheter Urinary Catheter Date of Insertion: 07/19/21 Date Urinary Catheter Removed: 07/22/21 Time Urinary Catheter Discontinued: 05:46 Discharge Data Studies Completed and Pending Completed Studies During Hospitalization Category Date Time Status XR chest 1V portable [id number] Urgent Exams 07/19/21 16:17 Completed XR femur RT min 2V* [id number] Routine Exams 07/20/21 Completed XR hip RT 2-3V wo/w pel* [id number] Urgent Exams 07/19/21 16:17 Completed CV. echo wo/w contrast [id number] Routine Ultrasound 07/19/21 17:23 Completed Radiology Impressions Chest X-Ray 07/19/21 16:17 IMPRESSION: No acute findings. Hip/Pelvis X-Ray 07/19/21 16:17 IMPRESSION: Comminuted displaced right intertrochanteric and subtrochanteric femur fracture. Femur X-Ray 07/20/21 00:00 IMPRESSION: 1. Satisfactory internal orthopedic fixation involving an intertrochanteric-subtrochanteric fracture of the right femur. Laboratory Results WBC 9.2 10^3/uL (4.0-10.0) 07/21/21 04:47 RBC 3.44 10^6/uL (4.1-5.3) L 07/21/21 04:47 Hgb 9.0 g/dL (11.7-16.6) L 07/22/21 04:45 Hct 28.9 % (42.0-52.0) L 07/22/21 04:45 MCV 93.6 fl (80-94) 07/21/21 04:47 MCH 29.9 pg (28.0-34.0) 07/21/21 04:47 MCHC 32.0 g/dL (30.0-36.0) 07/21/21 04:47 RDW 13.1 % (12.1-15.1) 07/21/21 04:47 Plt Count 218 10^3/cmm (130-400) 07/21/21 04:47 MPV 9.7 fL (7.4-10.4) 07/21/21 04:47 Neut % (Auto) 71.6 % 07/21/21 04:47 Lymph % (Auto) 15.8 % 07/21/21 04:47 [place] % (Auto) 12.1 % 07/21/21 04:47 Eos % (Auto) 0.1 % 07/21/21 04:47 Baso % (Auto) 0.2 % 07/21/21 04:47 Neut # (Auto) 6.61 10^3/uL (1.8-7.7) 07/21/21 04:47 Lymph # (Auto) 1.5 10^3/uL (0.8-4.8) 07/21/21 04:47 [place] # (Auto) 1.1 10^3/uL (0.2-0.9) H 07/21/21 04:47 Eos # (Auto) 0.0 10^3/uL (0.0-0.8) 07/21/21 04:47 Baso # (Auto) 0.0 10^3/uL (0.0-0.1) 07/21/21 04:47 Nucleated RBC % (auto) 0 % 07/21/21 04:47 Nucleated RBCs # 0.0 /100WBC 07/21/21 04:47 PT 13.00 SECONDS (12.1-14.9) 07/19/21 17:08 INR 0.96 (0.8-1.2) 07/19/21 17:08 Sodium 135 mmol/L (136-145) L 07/21/21 04:47 Potassium 4.5 mmol/L (3.5-5.1) 07/21/21 04:47 Chloride 101 mmol/L (98-107) 07/21/21 04:47 Carbon Dioxide 23 mmol/L (22-29) 07/21/21 04:47 Anion Gap 15.5 (5-19) 07/21/21 04:47 BUN 16 mg/dL (8-23) 07/21/21 04:47 Creatinine 0.6 mg/dL (0.7-1.2) L 07/21/21 04:47 GFR Calculation 137.0 mL/min (90-130) H 07/21/21 04:47 Glucose 125 mg/dL (65-115) H 07/21/21 04:47 Calculated Osmolality 283 mOsm/kg (285-295) L 07/21/21 04:47 Calcium 8.2 mg/dL (8.5-10.5) L 07/21/21 04:47 Magnesium 2.1 mg/dL (1.7-2.3) 07/20/21 01:39 Total Bilirubin 0.9 mg/dL (0.15-1.2) 07/19/21 17:08 AST 17 U/L (0-40) 07/19/21 17:08 ALT 27 U/L (0-41) 07/19/21 17:08 Alkaline Phosphatase 75 IU/L (40-130) 07/19/21 17:08 C-Reactive Protein 3.0 mg/L (0.0-4.9) 07/20/21 01:39 Total Protein 7.2 g/dL (6.6-8.7) 07/19/21 17:08 Albumin 4.4 g/dL (3.5-5.2) 07/19/21 17:08 Globulin 2.8 g/dL (1.3-4.6) 07/19/21 17:08 Vitals Last Vital Signs Temp 98.4 F 07/22/21 07:19 Pulse 100 07/22/21 07:19 Resp 18 07/22/21 09:53 BP 128/69 07/22/21 07:19 Pulse Ox 95 07/22/21 09:53 Discharge Plan Discharge Patient Disposition: Home Condition: Stable Prescriptions: New acetaminophen 500 mg Tablet 1,000 mg PO Q8H 15 Days Qty: 90 0RF aspirin 325 mg Tablet,Delayed Release (Dr/Ec) 325 mg PO DAILY 30 Days 0RF celecoxib 200 mg Capsule 200 mg PO BID@0900,2100 30 Days Qty: 60 0RF oxycodone 5 mg Tablet 5 mg PO Q4H PRN (Reason: Moderate To Severe Pain) 7 Days Qty: 30 0RF aspirin 325 mg tablet 325 mg PO DAILY Qty: 14 0RF oxycodone 10 mg tablet 10 mg PO Q8H PRN (Reason: pain) Qty: 20 0RF Senna-S 8.6-50 mg tablet 1 tab-cap PO BID PRN (Reason: constipation) Qty: 60 0RF Continued lisinopril 2.5 mg tablet 2.5 mg PO DAILY Qty: 90 1RF rosuvastatin 20 mg tablet 20 mg PO DAILY Qty: 90 1RF sildenafil [Viagra] 50 mg tablet 50 mg PO DAILY PRN (Reason: sexual activity) Qty: 10 5RF Rx Instructions: administer 30 minutes to 4 hours before activity Discontinued aspirin [Aspir-81] 81 mg tablet,delayed release (DR/EC) 81 mg PO DAILY 0RF Discharge Orders: Discharge Order (Routine); Ordered 07/22/21 Ordered By: Lluvia Willoughby Other Ambulatory Orders: Complete Blood Count w/Auto (Routine) Timeframe: 3 Days Location: Determined by Patient Ordered By: Lluvia Willoughby DME: Commode (Order) Location: None Selected Ordered By: Lluvia Willoughby DME: Shower Chair (Order) Location: None Selected Ordered By: Lluvia Willoughby DME: Walker (Order) Location: None Selected Ordered By: Lluvia Willoughby Physical Therapy Eval and Treat Outpatient (Order) Timeframe: 4 Weeks Facility: [facility] - Location: Physical Therapy Ordered By: Lluvia Willoughby Referrals: Radha Velasquez MD [Physician] - 08/07/21 9:45 am Savana Kilgore FNP [Primary Care Provider] - 7-10 days (Please call [facility] [place] Monday and set up an appointment to see Savana Kilgore within the next 10 days.) Discharge Activity: Limit activity as instructed, Use walker/crutches as instructed and As per PT/OT instructions Patient Instructions: Oxycodone/Acetaminophen (By mouth), Celecoxib (By mouth), Total Hip Replacement (GEN), Opioid Safety Activity Restrictions/Additional Instructions: Ice to right leg. Touch down weight bearing right lower extremity. Leave dressings in place until they peel off on their own. Discharge Attestations Time Spent in Discharge Care*: less than 30 min Quality Metrics Clinical Quality Measures [ No reported AMI, CVA or VTE this stay] Coding Level of Care Code Acute Chg FW DC note Diagnoses Subtrochanteric fracture of right femur S72.21XA Encounter type: initial encounter Fracture type: closed Fracture alignment: displaced Closed intertrochanteric fracture of right hip S72.141A Encounter type: initial encounter Fracture alignment: displaced
[2021-07-22 13:50] VITALS: RESP 18; O2SAT 95
== END 2021-07-22 13:00 | disposition home health service (06) | DRG 482 ==
LOC: ER 18:33 → MEDSURG 18:47
PROVIDERS: Specialist; Admitting Provider Internal Medicine; Emergency Provider Emergency Medicine; PCP Nurse Practitioner Family; Visit Provider Internal Medicine
PROC: 0QS606Z Reposition Right Upper Femur with Intramedullary Internal Fixation Device, Open Approach (ICD-10-PCS; CPT 27245; principal; 2021-07-20 11:00)
DX: S72.141A Displaced intertrochanteric fracture of right femur, initial encounter for closed fracture (principal); W00.0XXA Fall on same level due to ice and snow, initial encounter; F41.9 Anxiety disorder, unspecified; I25.10 Atherosclerotic heart disease of native coronary artery without angina pectoris; E78.5 Hyperlipidemia, unspecified; I10 Essential (primary) hypertension; F17.210 Nicotine dependence, cigarettes, uncomplicated; E55.9 Vitamin D deficiency, unspecified
CPT/HCPCS: 36415; 51702; 71045; 73502; 73552; 76000; 80048; 80053; 83735; 85014; 85018; 85025; 85610; 86140; 93005; 96374; 96375; 97110; 97116; 97161; 97165; 97530; 97535; 99285; C1713; C8929; J0690; J1100; J1170; J1650; J2250; J2405; J2704; J3010; J7030; Q9956

== ENCOUNTER 2021-07-27 13:12 | Outpatient (CLI) | payer OTHER, SELFPAY ==
[2021-07-27 13:55] LABS: Basophils # 0.1 10^3/uL (0.0-0.1); Basophils % 0.6 %; Eosinophils # 0.4 10^3/uL (0.0-0.8); Eosinophils % 4.4 %; Hematocrit 31.5 % (42.0-52.0); Hemoglobin 9.8 g/dL (11.7-16.6); Lymphocytes # 1.8 10^3/uL (0.8-4.8); Lymphocytes % 22.4 %; Mean Corpuscular HGB Conc 31.1 g/dL (30.0-36.0); Mean Corpuscular Hemoglobin 30.1 pg (28.0-34.0); Mean Corpuscular Volume 96.6 fl (80-94); Monocytes # 0.5 10^3/uL (0.2-0.9); Monocytes % 6.3 %; Neutrophils # 5.24 10^3/uL (1.8-7.7); Neutrophils % 65.5 %; Nucleated Red Blood Cells % 0 %; Platelet Count 466 10^3/cmm (130-400); Red Blood Count 3.26 10^6/uL (4.1-5.3); Red Cell Distribution Width 13.8 % (12.1-15.1)
== END 2021-07-27 13:13 | disposition home or self-care (01) ==
PROVIDERS: PCP Nurse Practitioner Family; Visit Provider Internal Medicine
DX: D64.9 Anemia, unspecified (principal)
CPT/HCPCS: 85025

== ENCOUNTER → 2021-08-07 09:55 | Outpatient (BNVA) | payer OTHER, SELFPAY | PROVIDERS: PCP Nurse Practitioner Family; Visit Provider Specialist | DX: S72.91XA Unspecified fracture of right femur, initial encounter for closed fracture (principal); X58.XXXA Exposure to other specified factors, initial encounter | CPT/HCPCS: 73552 ==

== ENCOUNTER → 2021-09-18 09:20 | Outpatient (BNVA) | payer OTHER, SELFPAY | PROVIDERS: PCP Nurse Practitioner Family; Visit Provider Specialist | DX: S72.91XA Unspecified fracture of right femur, initial encounter for closed fracture (principal); Z98.890 Other specified postprocedural states; S72.21XA Displaced subtrochanteric fracture of right femur, initial encounter for closed fracture; S72.141A Displaced intertrochanteric fracture of right femur, initial encounter for closed fracture; X58.XXXA Exposure to other specified factors, initial encounter | CPT/HCPCS: 73552 ==

== ENCOUNTER → 2021-10-18 09:08 | Outpatient (BNVA) | payer OTHER, SELFPAY | PROVIDERS: PCP Nurse Practitioner Family; Visit Provider Specialist | DX: S72.141A Displaced intertrochanteric fracture of right femur, initial encounter for closed fracture (principal); S72.21XA Displaced subtrochanteric fracture of right femur, initial encounter for closed fracture; X58.XXXA Exposure to other specified factors, initial encounter | CPT/HCPCS: 73552 ==

== ENCOUNTER 2021-10-24 06:00 | Outpatient (RCR) | payer OTHER, SELFPAY | END 2021-10-24 23:55 | disposition home or self-care (01) | LOC: TPT 06:00 | PROVIDERS: PCP Nurse Practitioner Family; Referring Provider Specialist; Visit Provider Specialist | DX: S72.21XD Displaced subtrochanteric fracture of right femur, subsequent encounter for closed fracture with routine healing (principal); X58.XXXD Exposure to other specified factors, subsequent encounter | CPT/HCPCS: 97163 ==

== ENCOUNTER 2021-10-25 06:00 | Outpatient (RCR) | payer OTHER, SELFPAY | END 2021-11-23 23:59 | disposition home or self-care (01) | LOC: TPT 06:00 | PROVIDERS: PCP Nurse Practitioner Family; Referring Provider Specialist; Visit Provider Specialist | DX: Z47.89 Encounter for other orthopedic aftercare (principal) | CPT/HCPCS: 97110 ==

== ENCOUNTER 2021-11-24 06:00 | Outpatient (RCR) | payer OTHER, SELFPAY | END 2021-12-24 23:59 | disposition home or self-care (01) | LOC: TPT 06:00 | PROVIDERS: PCP Nurse Practitioner Family; Referring Provider Specialist; Visit Provider Specialist | DX: Z47.89 Encounter for other orthopedic aftercare (principal); S72.001D Fracture of unspecified part of neck of right femur, subsequent encounter for closed fracture with routine healing; X58.XXXD Exposure to other specified factors, subsequent encounter | CPT/HCPCS: 97110 ==

== ENCOUNTER → 2021-12-06 09:11 | Outpatient (BNVA) | payer OTHER, SELFPAY | PROVIDERS: PCP Nurse Practitioner Family; Visit Provider Specialist | DX: S72.141A Displaced intertrochanteric fracture of right femur, initial encounter for closed fracture (principal) | CPT/HCPCS: 73502 ==

== ENCOUNTER 2021-12-15 07:41 | Day surgery (SDC) | payer OTHER, SELFPAY ==
[2021-12-14 10:41] VITALS: BMI 32.5
[2021-12-15] VITALS (9 sets, daily range): BP systolic 145–171; BP diastolic 82–100; PULSE 73–88; RESP 14–18; TEMP 36.2–36.6; O2SAT 95–97
--- NOTE | 2021-12-15 | SCC_ITS ---
Procedure done: Removal distal locking screw right long trochanteric nail 20.9 seconds of fluoroscopic guidance, for a cumulative dose of 1.55 mGy, was provided to Dr. Velasquez by the radiology department. C-arm images of the RIGHT femur were saved for the patient's permanent record. [facility]
--- NOTE | 2021-12-15 08:01 | W.PM.OPSUD ---
Surgery/Procedure H&P Update DATE OF PROCEDURE: December 15, 2021 DATE H&P PERFORMED: 12/06/21 H&P UPDATE INFORMATION: I have reviewed H&P completed within last 30 days, I have examined patient prior to procedure, No changes to prior documentation and H&P is in [facility] EMR on date indicated PREOP DIAGNOSIS: Painful hardware right distal trochanteric nail PLANNED PROCEDURE: Operation Date: 12/15/21 09:35 Proposed Procedures p RIGHT DISTAL SCREW REMOVAL TROCH NAIL 90499,S72.21XD(Right) - Radha Velasquez MD Related Problem List Diagnoses (1) Painful orthopaedic hardware: (2) Closed intertrochanteric fracture of right hip: Qualifiers: Encounter type: sequela Fracture alignment: displaced Qualified Code(s): S72.141S - Displaced intertrochanteric fracture of right femur, sequela
[2021-12-15] MEDS: sodium chloride 0.9% 1,000 ML 30 ML IV (08:19)
[2021-12-15] MEDS: acetaminophen 1,000 MG/100 ML PIGGYBACK 400 MG IV (08:22)
[2021-12-15] MEDS: CELEcoxib 200 mg Capsule 400 MG PO (08:22)
--- NOTE | 2021-12-15 08:23 | P.ANESASSM_ITS ---
Pre-Anesthetic Assessment Height/Weight: Height 1.83 m Weight 108.862 kg Temp Pulse Resp BP Pulse Ox 97.2 F L 88 18 171/100 95 12/15/21 08:06 12/15/21 08:06 12/15/21 08:06 12/15/21 08:06 12/15/21 08:06 Preop Diagnosis: Painful hardware right distal trochanteric nail Operation Date: 12/15/21 09:35 Proposed Procedures p RIGHT DISTAL SCREW REMOVAL TROCH NAIL 17904,S72.21XD(Right) - Radha Velasquez MD Familial anesthetic complications: None Was Beta Dominic taken within 24 hours: N/A Was Clonidine taken within 24 hours: N/A Last intake: Intake Last Liquid Date 12/14/21 Last Liquid Time 18:30 Last Solid Date 12/14/21 Last Solid Time 18:30 Social No alcohol and No tobacco Exam alert, oriented x 3, clear to auscultation bilaterally and regular rate & rhythm Airway Mallampati: Class III Dentition: chipped Comments: Comments: full brothers Pulmonary None reported CV/HEM Anemia, Coronary Artery Disease (mild ) and Hypertension Positive stress test 06/15, angiogram performed 07/16 showed only mild CAD of which no intervention was required Metabolic Hyperlipidemia Anesthetic Plan ASA status: 3 Anesthesia: General Risk of > 500 ml blood loss (7ml/kg in children): No Medications/Allergies Home Medications Medication Instructions Recorded Confirmed Last Taken Type lisinopril 2.5 mg tablet 2.5 mg PO DAILY #90 tab 11/07/21 12/15/21 12/14/21 Rx rosuvastatin 20 mg tablet 20 mg PO DAILY #90 tab 11/07/21 12/15/21 12/14/21 Rx Vitamin D3 250 mcg PO DAILY 12/14/21 12/15/21 12/14/21 History aspirin 81 mg tablet 81 mg PO DAILY 12/14/21 12/15/21 12/14/21 History diclofenac sodium 75 mg 75 mg PO BID PRN 12/14/21 12/15/21 12/06/21 History tablet,delayed release Allergies Allergy/AdvReac Type Severity Reaction Status Date / Time No Known Allergies Allergy Verified 12/14/21 10:37 Current Medications Generic Name Dose Route Start Last Admin Trade Name Freq PRN Reason Stop Dose Admin Sodium Chloride 1,000 mls @ 30 mls/hr 12/15/21 08:00 12/15/21 08:19 Sodium Chloride 0.9% IV 12/16/21 07:59 30 mls/hr .Q24H WILSON Administration PFSH Anesthesia Medical History (Updated 12/15/21 @ 08:04 by Radha Velasquez MD) Anxiety Chest pain Coronary artery disease 07/21/2019: Non obstructive disease: 50% proximal stenosis of the circumflex, 50% proximal stenosis of the ramus intermedius. LVEF normal. Fatigue HLD (hyperlipidemia) HTN (hypertension) Vitamin D deficiency Family History Father COPD (chronic obstructive pulmonary disease) Family/Other Cancer Brother Family history of premature coronary artery disease Hypertension Stroke Denies family history of Diabetes CAD (coronary artery disease) Clotting disorder Dementia Hyperlipidemia Psychiatric illness Chronic kidney disease (CKD) Suicide Anesthesia complication Bleeding disorder Lung disease Social History Smoking and tobacco status: never smoked Second hand smoke exposure: No Alcohol intake: current Alcohol intake frequency: holidays/special occasions only Lives independently: Yes Household members: spouse Marital status: Current occupational status: employed Current occupation: [employer] History of recent travel: No Current gender identity: Male Data Anesthesia Cardiac Studies: Echocardiogram 07/19/21
[2021-12-15] MEDS: ceFAZolin 2,000 MG in sodium chloride 0.9% (plus) 50 ML 100 MG IV (09:09)
[2021-12-15] MEDS: ceFAZolin 1,000 mg SDV 1000 MG IRRIGATION (09:49)
--- NOTE | 2021-12-15 09:59 | XR_ITS ---
WS: [id number] XR femur RT 1V [id number] REASON FOR EXAM: OR PICS FINDINGS: Removal of lateral portion of transverse screw anchoring the distal end of the femoral intramedullary percy. XR/XR femur RT 1 IMPRESSION: Partial hardware removal as above.
--- NOTE | 2021-12-15 10:27 | PM.OP ---
Operative Report Date of procedure: December 15, 2021 Pre-op diagnosis: Painful hardware right distal trochanteric nail Post-op diagnosis: Painful broken hardware right distal trochanteric nail Post-op findings: Distal locking screw was broken Procedure done: Removal distal locking screw right long trochanteric nail Specimens removed/disposition: Broken screw sent with patient. Pathology: none sent Surgeon: Radha Velasquez Anesthesia: General (Intubated, ASA 3) Estimated blood loss (mL): 2 IV fluids (mL): 500 Urine output (mL): 0 (No Russo) Complications: None Findings: Distal locking screw was broken. 25 mm of screw was removed. Initial screw was 45 mm Condition: stable Disposition: PACU (Then home with family.) Brief History: This 61-year-old gentleman previously underwent open reduction internal fixation of a right intertrochanteric and subtrochanteric severely comminuted proximal femur fracture. Date of initial surgery was July 20, 2021. The patient presented to the office on December 06, and at that time, the distal locking screw was noted to be significantly bent and possibly broken. Discussion was undertaken with the patient that the head portion of the screw was backing out. The cortical aspect of the screw had also backed out slightly from the medial aspect of the femur. The patient was advised that it was too early to take out his entire nail, but that I wanted to get the screw out as it was causing him difficulties and if it was not completely broken, we may be able to get the entire screw out. Risks and complications were discussed with him and explained to him. He understood. The patient was consented for surgery and questions were answered. Procedure: Patient was brought to the operating theater. After undergoing adequate general anesthesia with intubation, ASA 3, the patient was transferred to the operating room table, positioned on the table and fluoroscopic guidance obtained throughout the surgical procedure. Prior to the commencement of the surgical procedure, a surgical pause was performed. At the time of the surgical pause, we confirmed the site and side of surgery as well as preoperative surgical markings and appropriate and timely administration of IV antibiotics, Ancef 2 g. Availability of equipment was also confirmed. Attention was directed to the distal aspect of the trochanteric nail. The previous incision which was utilized to place the distal locking screw was incised. The incision was carried down onto the cortical bone. A combination of a [place] and [place] elevator was used to elevate soft tissue from around the screw. Initially, attempt was made to remove the screw with a screwdriver. This was not possible as the screw would spin but would not back out. We then placed the cannula used to guide the screw through the jogging system when it is initially placed, and we were able to place this cannula directly over the screw head. Once this was in place, we were able to place the locking screwdriver and placed tension on the screw as we removed it. The screw was removed uneventfully, but it was indeed broken and the length of the removed screw with head was approximate 25 mm. As discussed previously with the patient, and medial incision was not made to remove the medial aspect of the screw as this would have required drilling into the bone and was not necessary. Following this, the wound was irrigated. Subcutaneous tissues were closed with 2-0 Monocryl, and the skin was closed with a continuous 3-0 Monocryl as well. This was then covered with Dermabond and OpSite. The patient was returned to recovery in satisfactory condition. The patient will be discharged home with family. He is advised he may continue weightbearing as tolerated. Related Problem List Diagnoses (1) Closed intertrochanteric fracture of right hip: (2) Painful orthopaedic hardware:
[2021-12-15] MEDS: HYDROcodone-acetaminophen 5-325 mg Tablet 1 TAB PO (10:40)
--- NOTE | 2021-12-15 12:22 | ANE.PACU2 ---
Inpatient post-anesthesia follow up: Airway intact: Yes Vital signs: Temperature 97.8 F Pulse Rate 74 Respiratory Rate 18 Blood Pressure 145/87 Pulse Oximetry 97 Oxygen Delivery Me thod Room Air Oxygen Flow Rate Fraction of Inspir ed Oxygen Hydration adequate: Yes Nausea and vomiting: No Pain level: 1 Mental status: Baseline
== END 2021-12-15 10:54 | disposition home or self-care (01) ==
PROVIDERS: PCP Nurse Practitioner Family; Visit Provider Specialist
PROC: (CPT 20680; principal; 2021-12-15 09:25)
DX: T84.84XA Pain due to internal orthopedic prosthetic devices, implants and grafts, initial encounter (principal); I25.10 Atherosclerotic heart disease of native coronary artery without angina pectoris; I10 Essential (primary) hypertension; E78.5 Hyperlipidemia, unspecified; Z79.82 Long term (current) use of aspirin; F41.9 Anxiety disorder, unspecified; E55.9 Vitamin D deficiency, unspecified
CPT/HCPCS: 20680; 73551; 76000; J0690; J1100; J2405; J2704; J3010; J7030

== ENCOUNTER 2021-12-25 06:00 | Outpatient (RCR) | payer OTHER, SELFPAY | END 2022-01-24 23:59 | disposition home or self-care (01) | LOC: TPT 06:00 | PROVIDERS: PCP Nurse Practitioner Family; Referring Provider Specialist; Visit Provider Specialist | DX: S72.21XD Displaced subtrochanteric fracture of right femur, subsequent encounter for closed fracture with routine healing (principal); X58.XXXD Exposure to other specified factors, subsequent encounter | CPT/HCPCS: 97110 ==

== ENCOUNTER 2022-01-25 06:00 | Outpatient (RCR) | payer OTHER, SELFPAY | END 2022-02-23 23:59 | disposition home or self-care (01) | LOC: TPT 06:00 | PROVIDERS: PCP Nurse Practitioner Family; Visit Provider Specialist | DX: Z47.89 Encounter for other orthopedic aftercare (principal); S72.001D Fracture of unspecified part of neck of right femur, subsequent encounter for closed fracture with routine healing; X58.XXXD Exposure to other specified factors, subsequent encounter | CPT/HCPCS: 97110; 97140 ==

== ENCOUNTER 2022-02-24 06:00 | Outpatient (RCR) | payer OTHER, SELFPAY | END 2022-03-06 16:29 | disposition home or self-care (01) | LOC: TPT 06:00 | PROVIDERS: PCP Nurse Practitioner Family; Visit Provider Specialist | DX: S72.001A Fracture of unspecified part of neck of right femur, initial encounter for closed fracture (principal); X58.XXXA Exposure to other specified factors, initial encounter; Z47.89 Encounter for other orthopedic aftercare | CPT/HCPCS: 97110 ==

== ENCOUNTER 2022-03-27 12:42 | Outpatient (CLI) | payer OTHER, SELFPAY ==
--- NOTE | 2022-03-27 13:10 | XR_ITS ---
WS: [id number] DEXA (DUAL ENERGY X-RAY ABSORPTIOMETRY) Bone mineral density was performed using a [employer] machine. HISTORY: ENCOUNTER FOR OTHER SPECIFIED Examinations, large BONE FRACTURE male patient. COMPARISON: None available. Lumbar spine BMD (L2-L4): 1.226 T score: -0.1 Z score: -0.5 Total hip BMD: Left: 1.038 (g/cm2). T score: -0.4 (no units) Z score: -0.4 (no units) 10 year probability of a major osteoporotic fracture is 10.3%. XR/XR DEXA axial skeleton* 11431 IMPRESSION: NORMAL BONE MINERAL DENSITY.
== END 2022-03-27 12:43 | disposition home or self-care (01) ==
PROVIDERS: PCP Family Medicine; Visit Provider Family Medicine
DX: Z13.820 Encounter for screening for osteoporosis (principal); Z87.81 Personal history of (healed) traumatic fracture
CPT/HCPCS: 77080

== ENCOUNTER 2022-03-29 20:00 | Outpatient (CLI) | payer OTHER, SELFPAY | END 2022-03-29 20:01 | disposition home or self-care (01) | LOC: SLEEP 03-30 08:53 | PROVIDERS: PCP Family Medicine; Visit Provider Family Medicine | DX: G47.30 Sleep apnea, unspecified (principal) | CPT/HCPCS: 95811 ==

== ENCOUNTER 2022-05-31 10:42 | Outpatient (CLI) | payer OTHER, SELFPAY ==
--- NOTE | 2022-05-31 10:52 | MR_ITS ---
WS: [id number] MRI LUMBAR SPINE NONCONTRAST TECHNIQUE: Sagittal T1, T2 and STIR imaging. Axial T1 and T2 imaging. CLINICAL INFORMATION: LUMBAR RADICULOPATHY COMPARISON: None. FINDINGS: Mild lumbar curve. No acute compression. No high-grade central canal stenosis. Small annular fissure at T12-L1 with mild annular bulging. L1-L2: Mild annular bulging. Mild facet arthropathy. Spinal canal and foramen are patent. L2-L3: Mild annular bulging. Slight effacement of ventral thecal sac. Moderate facet arthropathy. For amen are patent. L3-L4: Mild annular bulging. Mild central canal stenosis. Moderate to advanced facet arthropathy. Mil d RIGHT greater than LEFT foraminal narrowing. L4-L5: Mild annular bulging. Impingement on the traversing LEFT L5 nerve root in the subarticular rec ess. Advanced LEFT facet arthropathy. Mild to moderate LEFT and mild RIGHT foraminal narrowing. L5-S1: Mild annular bulging with osteophytic ridging. Slight effacement of ventral thecal sac. Mild f acet arthropathy. Mild LEFT foraminal narrowing. Visualized pelvic bony structures: Normal. Paravertebral soft tissues: Normal. MR/MR lumbar spine wo con* [id number] IMPRESSION: 1. Mild lumbar curve. No acute compression. No high-grade central canal stenos is. 2. Annular bulging T12 with a small annular fissure. Slight effacement of the ventral thecal sac. 3. Mild central canal stenosis L3-L4 and L4-L5 due to mild disc bulging combin ation with facet arthropathy and ligamentum flavum hypertrophy. 4. Mild bilateral L3-L4 and mild to moderate LEFT L4-L5 foraminal narrowing. 5. Moderate to advanced facet arthropathy L3-L4 and LEFT L4-L5.
== END 2022-05-31 10:43 | disposition home or self-care (01) ==
PROVIDERS: PCP Family Medicine; Visit Provider Family Medicine
DX: M54.16 Radiculopathy, lumbar region (principal); M48.061 Spinal stenosis, lumbar region without neurogenic claudication; M47.816 Spondylosis without myelopathy or radiculopathy, lumbar region; M51.24 Other intervertebral disc displacement, thoracic region
CPT/HCPCS: 72148

== ENCOUNTER → 2022-06-19 14:31 | Outpatient (BNVA) | payer OTHER, SELFPAY | PROVIDERS: PCP Family Medicine; Visit Provider Otolaryngology | DX: G47.33 Obstructive sleep apnea (adult) (pediatric) (principal) | CPT/HCPCS: 99203 ==

== ENCOUNTER → 2022-07-19 11:19 | Outpatient (BNVA) | payer OTHER, SELFPAY | PROVIDERS: PCP Family Medicine; Visit Provider Nurse Practitioner Family | DX: Z98.890 Other specified postprocedural states (principal); S72.141D Displaced intertrochanteric fracture of right femur, subsequent encounter for closed fracture with routine healing; X58.XXXD Exposure to other specified factors, subsequent encounter | CPT/HCPCS: 73502; 99214 ==

== ENCOUNTER 2022-07-25 06:00 | Outpatient (RCR) | payer OTHER, SELFPAY | END 2022-08-24 23:59 | disposition home or self-care (01) | LOC: TPT 06:00 | PROVIDERS: PCP Family Medicine; Visit Provider Family Medicine | DX: M54.50 Low back pain, unspecified (principal) | CPT/HCPCS: 97110; 97162 ==

== ENCOUNTER 2022-08-25 06:00 | Outpatient (RCR) | payer OTHER, SELFPAY | END 2022-09-23 23:59 | disposition home or self-care (01) | LOC: TPT 06:00 | PROVIDERS: PCP Family Medicine; Visit Provider Family Medicine | DX: M54.59 Other low back pain (principal) | CPT/HCPCS: 97110 ==

== ENCOUNTER 2022-09-24 06:00 | Outpatient (RCR) | payer OTHER, SELFPAY | END 2022-09-26 23:59 | disposition home or self-care (01) | LOC: TPT 06:00 | PROVIDERS: PCP Family Medicine; Visit Provider Family Medicine | DX: M54.50 Low back pain, unspecified (principal) | CPT/HCPCS: 97110 ==

== ENCOUNTER 2023-02-28 09:01 | Outpatient (CLI) | payer OTHER, SELFPAY ==
--- NOTE | 2023-02-28 09:30 | USCV_ITS ---
Andres Sanchez Age: 62 Gender: M : 1960 Exam Date: 02/28/2023 09:19 Ordering Phys: Gali Zhou MD Technologist: Sunitha Cruz Exam Location: [facility] [place] Indication: COPD, HTN BP: 134 / 80 HR: 100 Rhythm: Sinus Technical Quality: Adequate MEASUREMENTS (Male / Female) Normal Values 2D ECHO LV Diastolic Diameter PLAX 2.9 cm 4.2 - 5.9 / 3.9 - 5.3 cm LV Systolic Diameter PLAX 2.1 cm IVS Diastolic Thickness 1.1 cm 0.6 - 1.0 / 0.6 - 0.9 cm IVS Systolic Thickness 2.1 cm LVPW Diastolic Thickness 0.7 cm 0.6 - 1.0 / 0.6 - 0.9 cm LVPW Systolic Thickness 2.0 cm LVOT Diameter 2.0 cm LV Ejection Fraction 2D Teich 53.3 % LV Ejection Fraction MOD 2C 80.6 % LV Ejection Fraction 2C AL 80.7 % LA Diameter 3.0 cm LA Width 3.7 cm LA Height 5.8 cm RA Width 3.2 cm RA Height 4.8 cm Aorta at Sinotubular Diameter 2.7 cm IVC Diameter 1.4 cm M-MODE Aortic Annulus Diameter 3.1 cm LA Ao Ratio MM 1.0 MV E Point Septal Separation 0.6 cm DOPPLER AV Peak Velocity 246.3 cm/s LVOT Peak Velocity 124.0 cm/s AV Area Cont Eq vti 1.5 cm squared AV Area Cont Eq pk 1.6 cm squared MV Peak Velocity 123.0 cm/s MV Area PHT 12.9 cm squared Mitral E to A Ratio 0.7 MV E' Velocity 37.5 cm/s Mitral E to MV E' Ratio 8.8 Mitral E to LV E' Lateral Ratio 8.1 Mitral E to LV E' Septal Ratio 9.5 TR Peak Velocity 119.7 cm/s TR Peak Gradient 5.7 mmHg Right Atrial Pressure 5.0 mmHg Pulmonary Artery Systolic Pressu 10.7 mmHg PV Peak Velocity 116.0 cm/s RV Acceleration Time 0.2 s RV Ejection Time 0.3 s RV AcT/ET 0.7 FINDINGS Left Ventricle Normal left ventricular size, systolic function and wall thickness, with no regional wall motion abnormalities. Left ventricular ejection fraction is estimated at 60 %. Grade I diastolic dysfunction (abnormal relaxation filling pattern), normal to mildly elevated filling pressures. Right Ventricle Normal right ventricular size and systolic function. Right ventricular systolic pressure 10.7 mmHg. Right Atrium Normal right atrial size. Left Atrium Normal left atrial size. Mitral Valve Structurally normal mitral valve. No mitral valve stenosis. No mitral valve regurgitation. Aortic Valve Thickened trileaflet sclerotic aortic valve. No aortic valve stenosis. No aortic valve regurgitation. Tricuspid Valve Structurally normal tricuspid valve. Pulmonic Valve Pulmonic valve not well visualized. Pericardium No pericardial effusion. Aorta Normal size aortic root and proximal ascending aorta. IVC Normal IVC dimension with >50% respiratory change of the inferior vena cava. CONCLUSIONS 1. Normal left ventricular size, systolic function and wall thickness, with no regional wall motion abnormalities. Left ventricular ejection fraction is estimated at 60 %. Grade I diastolic dysfunction (abnormal relaxation filling pattern), normal to mildly elevated filling pressures. 2. Aoric valve sclerosis. 3. Direct comparison to previous study dated 07/19/21 is not possible. Ashanti Carrizales MD (Electronically Signed) Final Date: 04 March 2023 15:19 S
== END 2023-02-28 09:02 | disposition home or self-care (01) ==
LOC: RAD 09:03
PROVIDERS: PCP Family Medicine; Visit Provider Family Medicine
DX: R01.1 Cardiac murmur, unspecified (principal); J44.9 Chronic obstructive pulmonary disease, unspecified; I11.9 Hypertensive heart disease without heart failure; I35.8 Other nonrheumatic aortic valve disorders
CPT/HCPCS: 93306

== ENCOUNTER 2024-06-09 20:00 | Outpatient (CLI) | payer OTHER, SELFPAY | END 2024-06-09 20:01 | disposition home or self-care (01) | LOC: SLEEP 23:09 | PROVIDERS: PCP Family Medicine; Visit Provider Family Medicine | DX: G47.33 Obstructive sleep apnea (adult) (pediatric) (principal) | CPT/HCPCS: 95811 ==